=== PATIENT | male | born 1955 | race Caucasian/White ===

== ENCOUNTER 2017-08-10 14:25 | Emergency (ER) | payer OTHER ==
[~2017-08-10] VITALS: Ht 175.3 cm; Wt 110.6 kg
[~2017-08-10 14:25] MED LIST: ACET-24 PO; ASPEC81 PO; CLB200 PO; CYM/30 PO; DULO60CA44 PO; GABA-113 PO; ONDA8TAB6 PO; RXC5 PO; SENN-61 PO
[2017-08-10 14:37] VITALS: TEMP 36.8; Ht 175.3 cm; Wt 110.6 kg
[2017-08-10] MEDS ORDERED: OMEP20CA9 PO (14:59)
--- NOTE | 2017-08-10 15:31 | DIAGNOSTIC IMAGING REPORT ---
R KNEE 1 OR 2 VIEWS ROUTINE CLINICAL HISTORY: rt knee pain after fall, s/p total knee arthroplasty 07/31/17 trauma. Pain. COMPARISON: 07/31/2017 DISCUSSION: Anatomic alignment posttotal right knee arthroplasty. Prepatellar soft tissue edema. No acute post traumatic abnormality. IMPRESSION: 1. Prepatellar soft tissue edema. 2. Total right knee replacement in good position. 3. No acute bony abnormality. The above report was generated using voice recognition software. It may contain grammatical, syntax or spelling errors. Electronically signed by: Zaire Neumann M.D. 08/10/2017 3:30 PM Dictated Date/Time: 08/10/2017 3:29 PM
[2017-08-10 16:24] VITALS: BP 156/89; PULSE 87; O2SAT 94
--- NOTE | 2017-08-10 16:35 | EMERGENCY ROOM VISIT NOTE ---
History Report prepared by Nancy: Khai Biggs Under the Supervision of: Dr. Ej Lopez D.O. First contact with patient: 14:50 Chief Complaint: FALL Stated Complaint: fall History of Present Illness The patient is a 61 year old male who presents to the Emergency Room with complaints of a sudden mechanical fall that occurred earlier this afternoon. He states that he had a total right knee replacement over a week ago. Per the patient's , the patient was using his walker, but had one hand on the walker and had the other hand trying to move something on the floor, and then the patient lost his balance and fell. The patient says that he has had persistent right knee pain ever since the fall, but he did not hear a pop. He notes that the swelling has not worsened. He says that he did not hit his head on the fall. The patient did take 2 Oxycodone around 2 hours ago. Source of History: patient, spouse/significant other Onset: Earlier this afternoon Position: other (global) Symptom Intensity: hurt left knee that he had total knee replacement on last week Quality: other (mechanical fall) Timing: other (sudden) Note: Associated symptoms: Left knee pain. Notes no worsened swelling to knee. Did not hit head. Review of Systems See HPI for pertinent positives & negatives. A total of 10 systems reviewed and were otherwise negative. Past Medical & Surgical Surgical Problems: (1) S/P TKR (total knee replacement) Family History No pertinent family history Social History Smoking Status: Never Smoker Smokeless Tobacco Use: No Alcohol Use: none Marital Status: Housing Status: lives with family Occupation Status: retired Current/Historical Medications Scheduled Acetaminophen (Sb Non-Aspirin Extra Stre), 1,000 MG PO Q8H Aspirin (Aspirin EC Low Dose), 81 MG PO BID Celecoxib (Celebrex), 200 MG PO BID Duloxetine Hcl (Cymbalta), 60 MG PO HS Gabapentin (Neurontin), 600 MG PO TID Omeprazole (Prilosec), 40 MG PO QAM Senna (Senokot), 17.2 MG PO HS Scheduled PRN Ondansetron Hcl (Zofran), 8 MG PO Q8 PRN for Nausea Oxycodone HCl (Oxycodone HCl), 5-10 MG PO Q4H PRN for Pain Allergies Coded Allergies: No Known Allergies (Unverified , 07/06/17) Physical Exam Vital Signs Date Time Temp Pulse Resp B/P (MAP) Pulse Ox O2 Delivery O2 Flow Rate FiO2 08/10/17 16:24 87 19 156/89 94 Room Air 08/10/17 14:37 36.8 85 22 139/77 97 Room Air Physical Exam CONSTITUTIONAL/VITAL SIGNS: Reviewed / noted above. GENERAL: Non-toxic in appearance. INTEGUMENTARY: Warm, dry, and [place]. HEAD: Normocephalic. EYES: without scleral icterus or trauma. ENT/OROPHARYNX: clear and moist. LYMPHADENOPATHY/NECK: Is supple without lymphadenopathy or meningismus. RESPIRATORY: Lungs clear and equal. CARDIOVASCULAR: Regular rate and rhythm. GI/ABDOMEN: Soft and nontender. No organomegaly or pulsatile mass. No rebound or guarding. Normal bowel sounds. EXTREMITIES: Right knee is swollen, hyperemic and warm with a post-surgical wound anteriorly without obvious infection or discharge. Limited range of motion due to discomfort. BACK: No CVA tenderness. NEUROLOGICAL: Intact without focal deficits. PSYCHIATRIC: normal affect. MUSCULOSKELETAL: Normally developed with good muscle tone. Medical Decision & Procedures ER Provider Diagnostic Interpretation: X ray results and stated below per my interpretation and radiology interpretation. R KNEE 1 OR 2 VIEWS ROUTINE CLINICAL HISTORY: rt knee pain after fall, s/p total knee arthroplasty 07/31/17 trauma. Pain. COMPARISON: 07/31/2017 DISCUSSION: Anatomic alignment posttotal right knee arthroplasty. Prepatellar soft tissue edema. No acute post traumatic abnormality. IMPRESSION: 1. Prepatellar soft tissue edema. 2. Total right knee replacement in good position. 3. No acute bony abnormality. The above report was generated using voice recognition software. It may contain grammatical, syntax or spelling errors. Electronically signed by: Zaire Neumann M.D. 08/10/2017 3:30 PM Dictated Date/Time: 08/10/2017 3:29 PM Medications Administered Medications (Trade) Dose Ordered Sig/Marlena Route Start Time Stop Time Status Last Admin Dose Admin Oxycodone/ Acetaminophen (Percocet 5-325mg Tab) 2 tab NOW ONCE PO 08/10/17 16:45 08/10/17 16:46 DC 08/10/17 16:45 2 TAB ED Course 1453: Previous medical records were reviewed. The patient was evaluated in room A10. A complete history and physical examination was performed. 1641: On reevaluation, the patient is resting. I discussed the results and findings with the patient. He verbalized agreement of the treatment plan. He was discharged home. 1644: Ordered Percocet 5-325mg Tab 2 tab PO. Medical Decision Differentials include: Close head injury, intracranial bleed, facial trauma, cervical spine trauma, chest and thoracic trauma, abdominal and intra-abdominal trauma, spine neurologic trauma, and extremity trauma. This is a 61-year-old male who presents to the ED with a chief complaint of a fall. The patient was walking with a walker today and bent over to get something and fell over. The patient had his total right knee arthroplasty done about 9 days ago. The patient has no other complaints. Did not strike his head or lose consciousness. He came in complaining of right knee pain. The patient's exam reveals post operative changes. There is some swelling to the right knee which the reports is about what it has been. There is some increased warmth and hyperemia to the area but no obvious infection. There was no obvious injuries noted other than his postsurgical process. He denies striking his right knee. He just complains of pain in that area. His exam is otherwise unremarkable. X-ray reveals post operative changes and some soft tissue swelling. He was given 2 Percocet here for pain. He was felt to be stable for discharge. Medication Reconcilliation Current Medication List: was personally reviewed by me Blood Pressure Screening Patient's blood pressure: Elevated blood pressure Blood pressure disposition: Elevated BP felt to be situational Impression Primary Impression: S/P TKR (total knee replacement) Additional Impressions: Fall Knee pain Scribe Attestation The scribe's documentation has been prepared under my direction and personally reviewed by me in its entirety. I confirm that the note above accurately reflects all work, treatment, procedures, and medical decision making performed by me. Departure Information Dispostion Home / Self-Care Referrals No Doctor, Assigned (PCP) Patient Instructions My [facility] Additional Instructions Continue your current medications. Follow-up with your doctor for further care and evaluation in 1-2 days. Return to the emergency department for worsening or new symptoms or any concerns. You have been examined and treated today on an emergency basis only. This is not a substitute for, or an effort to provide, complete comprehensive medical care. It is impossible to recognize and treat all injuries or illnesses in a single emergency department visit. It is therefore important that you follow up closely with your doctor. Call as soon as possible for an appointment. Problem Qualifiers
[2017-08-10] MEDS ORDERED: OXYCODONE/ACETAMINOPHEN 5-325 TAB PO ONE (16:45)
== END 2017-08-10 16:51 | disposition home or self-care (01) ==
LOC: EDBD 14:25 → C.EDA 14:27
DX: M25.561 Pain in right knee (principal); Z96.651 Presence of right artificial knee joint; Z79.82 Long term (current) use of aspirin; Z79.899 Other long term (current) drug therapy; W19.XXXA Unspecified fall, initial encounter

== ENCOUNTER → 2017-12-07 | Outpatient (CLI) | payer OTHER ==
[~2017-12-07] MED LIST changes: -ASPEC81 PO; +ASPI-320 PO; +ASPI-461 PO; +CEFT1INJ57 IV; +CLB/200 PO; +CYAN10005 PO; +DAPT500I IV; +NRN600 PO; +OMEP20CA9 PO; +ONDA-170 PO; -ONDA8TAB6 PO; +OXYSR10 PO; +TRAZ1TAB96 PO; +bactrim PO; +ferrous PO
[2017-12-07 15:55] LABS: HEMATOCRIT 31.6 % (42-52); HEMOGLOBIN 9.6 g/dL (14.0-18.0); MEAN CELL VOLUME 72.6 fL (80-100); MEAN CORPUSCULAR HEMOGLOBIN 22.1 pg (25-34); MEAN CORPUSCULAR HGB CONC 30.4 g/dl (32-36); MEAN PLATELET VOLUME 7.8 fL (7.4-10.4); PLATELET COUNT 510 K/uL (130-400); RED CELL DISTRIBUTION WIDTH SD 45.7 fL (36.4-46.3); WHITE BLOOD COUNT 11.01 K/uL (4.8-10.8)
[2017-12-07 16:06] LABS: ALBUMIN 2.8 gm/dl (3.4-5.0); BLOOD UREA NITROGEN 17 mg/dl (7-18); CALCIUM 8.7 mg/dl (8.5-10.1); CARBON DIOXIDE 28 mmol/L (21-32); CREATININE 0.85 mg/dl (0.60-1.40); GLUCOSE 107 mg/dl (70-99); POTASSIUM 3.8 mmol/L (3.5-5.1); SODIUM 137 mmol/L (136-145)
[2017-12-07 16:08] LABS: PTT PATIENT 30.8 SECONDS (21.0-31.0)
[2017-12-07 16:10] LABS: BASO % 0.4 %; BASO ABS # 0.04 K/uL (0-0.2); EOS ABS # 0.22 K/uL (0-0.5); IG# 0.04 K/uL (0.00-0.02); LYMPH % 11.7 %; LYMPH ABS # 1.29 K/uL (1.2-3.4); MONO % 8.1 %; MONO ABS # 0.89 K/uL (0.11-0.59); NEUT % 77.4 %; NEUT ABS # 8.53 K/uL (1.4-6.5)
[2017-12-08 07:18] LABS: HEMOGLOBIN A1C 6.2 % (4.5-5.6)
--- NOTE | 2017-12-14 14:05 | EDITING REQUIRED CODING QUERY ---
CQSUPPORTING DIAGNOSIS NEEDED A supporting diagnosis is required for the test/procedure performed on this patient in order for us to be reimbursed by the patient's insurance. Please provide a supporting diagnosis for the following test/procedure listed below next to the test name along with your signature. *If there is no additional diagnosis for this patient that would support the following test/procedure please document that below next to the test/procedure. Test(s)/Procedure(s) that require a supporting diagnosis: DOS 12/07/17 CBC TEST URINE CULTURE TEST HEMOGLOBIN TEST Provider Signature: Date: Thank you Claudia Almanza Health Information Management Once completed, please kindly fax back to [phone] For questions please call [phone]
--- NOTE | 2017-12-21 06:46 | CODING QUERY MEDICAL NECESSITY ---
CQTREATMENT RENDERED WITHOUT A DIAGNOSIS To promote full compliance with coding requirements relating to patient care, physician participation is requested in all cases of construction superintendent uncertainty. Please assist us with providing a diagnosis/symptom for the test(s) below: A diagnosis/symptom was not documented on your Order. A valid diagnosis/symptom is required to bill all insurances. Please remember that we are unable to code a diagnosis of rule out, probable, possible, questionable, or suspected. Tests that require a diagnosis: DOS 12/07/17 CBC TEST URINE CULTURE TEST HEMOGLOBIN TEST Provider Signature: Date: Thank you Claudia Almanza Health Information Management Once completed, please kindly fax back to [phone] For questions please call [phone]
== END | disposition home or self-care (01) ==
LOC: C.LAB 14:20
PROVIDERS: ATTEND Orthopaedic Surgery
DX: Z01.812 Encounter for preprocedural laboratory examination (principal)

== ENCOUNTER → 2017-12-24 | Outpatient (CLI) | payer OTHER ==
[2017-12-24 13:42] LABS: HEMATOCRIT 28.8 % (42-52); HEMOGLOBIN 8.6 g/dL (14.0-18.0); MEAN CELL VOLUME 76.2 fL (80-100); MEAN CORPUSCULAR HEMOGLOBIN 22.8 pg (25-34); MEAN CORPUSCULAR HGB CONC 29.9 g/dl (32-36); MEAN PLATELET VOLUME 8.1 fL (7.4-10.4); PLATELET COUNT 545 K/uL (130-400); RED CELL DISTRIBUTION WIDTH CV 19.1 % (11.5-14.5); RED CELL DISTRIBUTION WIDTH SD 53.4 fL (36.4-46.3); WHITE BLOOD COUNT 11.05 K/uL (4.8-10.8)
[2017-12-24 14:19] LABS: ALBUMIN 2.7 gm/dl (3.4-5.0); ALKALINE PHOSPHATASE 120 U/L (45-117); ALT/SGPT 30 U/L (12-78); AST/SGOT 35 U/L (15-37); BLOOD UREA NITROGEN 14 mg/dl (7-18); CALCIUM 8.8 mg/dl (8.5-10.1); CARBON DIOXIDE 28 mmol/L (21-32); CREATININE 0.89 mg/dl (0.60-1.40); GLUCOSE 87 mg/dl (70-99); POTASSIUM 3.9 mmol/L (3.5-5.1); SODIUM 141 mmol/L (136-145); TOTAL PROTEIN 7.4 gm/dl (6.4-8.2)
== END | disposition home or self-care (01) ==
LOC: C.LABSPEC 10:36
PROVIDERS: ATTEND Orthopaedic Surgery
DX: Z96.651 Presence of right artificial knee joint (principal)

== ENCOUNTER → 2017-12-26 | Outpatient (CLI) | payer OTHER ==
[~2017-12-26] MED LIST changes: -ASPI-320 PO; -CLB200 PO; -DAPT500I IV; -GABA-113 PO; -ONDA-170 PO; -OXYSR10 PO
== END | disposition home or self-care (01) ==
LOC: C.LABSPEC 09:37
PROVIDERS: ATTEND Internal Medicine Infectious Disease
DX: B99.8 Other infectious disease (principal); Z96.651 Presence of right artificial knee joint

== ENCOUNTER → 2017-12-31 | Outpatient (CLI) | payer OTHER ==
[2017-12-31 10:58] LABS: HEMATOCRIT 30.6 % (42-52); HEMOGLOBIN 8.9 g/dL (14.0-18.0); MEAN CELL VOLUME 77.3 fL (80-100); MEAN CORPUSCULAR HEMOGLOBIN 22.5 pg (25-34); MEAN CORPUSCULAR HGB CONC 29.1 g/dl (32-36); MEAN PLATELET VOLUME 8.4 fL (7.4-10.4); PLATELET COUNT 487 K/uL (130-400); RED CELL DISTRIBUTION WIDTH CV 19.6 % (11.5-14.5); RED CELL DISTRIBUTION WIDTH SD 55.1 fL (36.4-46.3); WHITE BLOOD COUNT 9.63 K/uL (4.8-10.8)
[2017-12-31 11:24] LABS: ALBUMIN 2.7 gm/dl (3.4-5.0); ALKALINE PHOSPHATASE 103 U/L (45-117); ALT/SGPT 20 U/L (12-78); AST/SGOT 25 U/L (15-37); BLOOD UREA NITROGEN 17 mg/dl (7-18); CALCIUM 8.9 mg/dl (8.5-10.1); CARBON DIOXIDE 26 mmol/L (21-32); GLUCOSE 90 mg/dl (70-99); POTASSIUM 3.9 mmol/L (3.5-5.1); SODIUM 143 mmol/L (136-145); TOTAL PROTEIN 7.2 gm/dl (6.4-8.2)
[2017-12-31 11:59] LABS: EOS % 6.1 %; EOS ABS # 0.59 K/uL (0-0.5); IG# 0.03 K/uL (0.00-0.02); LYMPH ABS # 1.54 K/uL (1.2-3.4); MONO % 8.8 %; MONO ABS # 0.85 K/uL (0.11-0.59); NEUT % 67.8 %; NEUT ABS # 6.52 K/uL (1.4-6.5)
== END | disposition home or self-care (01) ==
LOC: C.LABSPEC 10:31
PROVIDERS: ATTEND Internal Medicine Infectious Disease
DX: L03.90 Cellulitis, unspecified (principal)

== ENCOUNTER → 2018-01-14 | Outpatient (CLI) | payer OTHER ==
[2018-01-14 11:51] LABS: HEMATOCRIT 29.3 % (42-52); HEMOGLOBIN 8.6 g/dL (14.0-18.0); MEAN CELL VOLUME 78.8 fL (80-100); MEAN CORPUSCULAR HEMOGLOBIN 23.1 pg (25-34); MEAN CORPUSCULAR HGB CONC 29.4 g/dl (32-36); MEAN PLATELET VOLUME 8.9 fL (7.4-10.4); PLATELET COUNT 326 K/uL (130-400); RED CELL DISTRIBUTION WIDTH CV 20.6 % (11.5-14.5); RED CELL DISTRIBUTION WIDTH SD 59.8 fL (36.4-46.3); WHITE BLOOD COUNT 4.84 K/uL (4.8-10.8)
[2018-01-14 12:00] LABS: ALBUMIN 2.7 gm/dl (3.4-5.0); ALKALINE PHOSPHATASE 105 U/L (45-117); ALT/SGPT 23 U/L (12-78); AST/SGOT 23 U/L (15-37); BLOOD UREA NITROGEN 21 mg/dl (7-18); CALCIUM 8.5 mg/dl (8.5-10.1); CARBON DIOXIDE 26 mmol/L (21-32); CREATININE 1.54 mg/dl (0.60-1.40); GLUCOSE 111 mg/dl (70-99); POTASSIUM 3.9 mmol/L (3.5-5.1); SODIUM 141 mmol/L (136-145); TOTAL PROTEIN 6.8 gm/dl (6.4-8.2)
[2018-01-14 12:14] LABS: BASO % 1.9 %; BASO ABS # 0.09 K/uL (0-0.2); EOS % 4.1 %; IG# 0.01 K/uL (0.00-0.02); LYMPH ABS # 0.87 K/uL (1.2-3.4); MONO % 22.7 %; NEUT % 53.1 %; NEUT ABS # 2.57 K/uL (1.4-6.5)
== END | disposition home or self-care (01) ==
LOC: C.LABSPEC 10:41
PROVIDERS: ATTEND Internal Medicine Infectious Disease
DX: M00.9 Pyogenic arthritis, unspecified (principal)

== ENCOUNTER → 2018-01-21 | Outpatient (CLI) | payer OTHER ==
[2018-01-21 14:05] LABS: HEMATOCRIT 29.3 % (42-52); HEMOGLOBIN 8.5 g/dL (14.0-18.0); MEAN CELL VOLUME 80.5 fL (80-100); MEAN CORPUSCULAR HEMOGLOBIN 23.4 pg (25-34); MEAN PLATELET VOLUME 8.5 fL (7.4-10.4); PLATELET COUNT 362 K/uL (130-400); RED CELL DISTRIBUTION WIDTH CV 19.8 % (11.5-14.5); RED CELL DISTRIBUTION WIDTH SD 58.4 fL (36.4-46.3); WHITE BLOOD COUNT 7.17 K/uL (4.8-10.8)
[2018-01-21 14:15] LABS: BLOOD UREA NITROGEN 29 mg/dl (7-18); CREATININE 2.38 mg/dl (0.60-1.40); GLUCOSE 94 mg/dl (70-99)
[2018-01-21 14:16] LABS: ALBUMIN 2.5 gm/dl (3.4-5.0); ALKALINE PHOSPHATASE 109 U/L (45-117); ALT/SGPT 22 U/L (12-78); AST/SGOT 15 U/L (15-37); CALCIUM 8.3 mg/dl (8.5-10.1); CARBON DIOXIDE 25 mmol/L (21-32); POTASSIUM 3.4 mmol/L (3.5-5.1); SODIUM 141 mmol/L (136-145); TOTAL PROTEIN 6.8 gm/dl (6.4-8.2)
[2018-01-21 14:32] LABS: BASO % 0.6 %; BASO ABS # 0.04 K/uL (0-0.2); EOS % 3.9 %; EOS ABS # 0.28 K/uL (0-0.5); IG# 0.01 K/uL (0.00-0.02); LYMPH % 16.2 %; LYMPH ABS # 1.16 K/uL (1.2-3.4); MONO % 11.6 %; MONO ABS # 0.83 K/uL (0.11-0.59); NEUT % 67.6 %; NEUT ABS # 4.85 K/uL (1.4-6.5)
== END | disposition home or self-care (01) ==
LOC: C.LABSPEC 07:40
PROVIDERS: ATTEND Internal Medicine Infectious Disease
DX: L03.90 Cellulitis, unspecified (principal)

== ENCOUNTER 2025-04-24 23:53 | Inpatient (IN) ==
[2025-04-25] MEDS ORDERED: VANCOMYCIN CONSULT ACTIVE PRN (00:32)
--- NOTE | 2025-04-25 00:32 | Emergency Department Note ---
History of Present Illness General Chief complaint: Foot Injury/Pain Stated complaint: LT FOOT INFECTION? Time Seen by Provider: 04/25/25 00:08 History of Present Illness Maximum Pain Intensity: 8 This 69-year-old male presents to the ER complaining of left foot infection. He had surgery a few years ago. Patient states the past few days has become more red swollen and painful. It started draining today. His was concerned and sent him in. Tetanus is reported as current. He denies diabetes. Patient denies chest pain, dyspnea, fevers, calf pain. Home Medications Medication Instructions Recorded Confirmed Type cyanocobalamin (vitamin B-12) 1,000 mcg PO QAM 02/04/21 04/25/25 History 1,000 mcg tablet (Vitamin B-12) sertraline 50 mg tablet 50 mg PO DAILY #90 tabs 06/24/24 04/25/25 Rx aspirin 81 mg chewable tablet 81 mg PO DAILY 12/23/24 04/25/25 History esomeprazole magnesium 40 mg 40 mg PO QAM #90 caps 12/23/24 04/25/25 Rx capsule,delayed release (Nexium) famotidine 20 mg tablet (Pepcid) 20 mg PO HS #90 tabs 01/07/25 04/25/25 Rx trazodone 50 mg tablet 50 mg PO HS #90 tabs 01/07/25 04/25/25 Rx celecoxib 200 mg capsule 200 mg PO BID #60 caps 03/05/25 04/25/25 Rx gabapentin 300 mg capsule 300 mg PO TID #90 caps 04/22/25 04/25/25 Rx losartan 50 mg tablet 50 mg PO DAILY #30 tabs 04/22/25 04/25/25 Rx albuterol sulfate 90 mcg/actuation 1 - 2 puff inhalation .EVERY 4-6HR 04/25/25 04/25/25 History aerosol inhaler PRN cough/sob potassium chloride 20 mEq 20 meq PO DAILY 04/25/25 04/25/25 History tablet,extended release Allergies Allergy/AdvReac Type Severity Reaction Status Date / Time ceftriaxone [From Rocephin] Allergy Rash Verified 01/29/25 12:55 Past Med/Surg History Problem List Acute kidney injury (Acute) Cellulitis of foot, left (Acute) Rheumatoid arthritis Positive colorectal cancer screening using Cologuard test Balance disorder MAXIMO (obstructive sleep apnea) Essential hypertension (Chronic) Anemia (Acute) History of revision of total knee arthroplasty Encounter for pre-operative examination Not cleared at this time due to elevated BUN/Cr and decreased GFR. Spoke with Zaire Neil PA-C from [facility] [place] and they feel that the abnormal labs were secondary to the antibiotics that he was on at that time. He is to come into the hospital this evening and have repeat labs drawn. Will evaluate patient in the morning and review the labs and decide if patient is clear at that time from an anesthesia perspective. S/P TKR (total knee replacement) (Chronic) Medical History (Updated 04/25/25 @ 04:05 by Padmini Layton PA-C) Obesity (BMI 30.0-34.9) Depression Anxiety Anemia Hyperlipidemia Acid reflux Osteoarthritis Sleep apnea NO LONGER USES CPAP, HAS HAD NO ISSUES. Surgical History S/P foot surgery, left History of tonsillectomy and adenoidectomy Amputation of finger of right hand History of colonoscopy History of total knee replacement Fusion of spine Family History Other Heart disease Denies family history of Cancer Social History Smoking Status: Never smoker Second Hand Exposure: No; Do You Dip or Chew Tobacco: No; Hx Alcohol Use: No Hx Substance Use: No Preferred Language: Citizen Of [place] Communication Ability: Effective Visual Impairment: No Limitations Agility Instructor Required: No Beliefs That Will Affect Care: None Current Living Situation: Spouse Current Living Situation Comment: lives at home with Feels Safe at Home: Yes Seatbelt Use: always Assistive Devices: Cane and CPAP Review of Systems A total of 10 systems reviewed and were otherwise negative Physical Exam Vital Signs Vital Signs - 24 hr 04/25/25 00:01 04/25/25 00:34 04/25/25 00:37 Temperature 36.6 C Temperature Source Temporal Artery Scan Pulse Rate 101 H 100 H Pulse Rate [Right Finger] 103 H Pulse Rhythm Regular Pulse Rhythm [Right Finger] Regular Respiratory Rate 20 18 18 Respiratory Effort / Characteristics Non-Labored Respiratory Depth Normal Blood Pressure 143/67 H Blood Pressure [Right Arm] 135/80 Blood Pressure Mean 92 Blood Pressure Mean [Right Arm] 98 Blood Pressure Position Sitting Pulse Oximetry 92 95 95 Oxygen Delivery Method Room Air Room Air Room Air Sepsis Recent Fever Within 48 Hours No Sepsis New/Unexplained Change in Mental Status N/A Sepsis Action Taken by Nursing No Action Required 04/25/25 00:37 04/25/25 00:59 04/25/25 01:16 Temperature Temperature Source Pulse Rate Pulse Rate [Right Finger] 100 H 96 H 96 H Pulse Rhythm Pulse Rhythm [Right Finger] Regular Regular Regular Respiratory Rate 18 18 16 Respiratory Effort / Characteristics Non-Labored Non-Labored Non-Labored Respiratory Depth Normal Normal Normal Blood Pressure Blood Pressure [Right Arm] 135/80 129/75 140/80 Blood Pressure Mean Blood Pressure Mean [Right Arm] 98 93 100 Blood Pressure Position Pulse Oximetry 95 92 93 Oxygen Delivery Method Room Air Room Air Room Air Sepsis Recent Fever Within 48 Hours Sepsis New/Unexplained Change in Mental Status Sepsis Action Taken by Nursing 04/25/25 02:10 04/25/25 02:15 Temperature Temperature Source Pulse Rate Pulse Rate [Right Finger] 100 H 96 H Pulse Rhythm Pulse Rhythm [Right Finger] Regular Regular Respiratory Rate 18 18 Respiratory Effort / Characteristics Non-Labored Respiratory Depth Normal Normal Blood Pressure Blood Pressure [Right Arm] 106/60 157/81 H Blood Pressure Mean Blood Pressure Mean [Right Arm] 75 106 Blood Pressure Position Pulse Oximetry 94 94 Oxygen Delivery Method Room Air Room Air Sepsis Recent Fever Within 48 Hours Sepsis New/Unexplained Change in Mental Status Sepsis Action Taken by Nursing VITALS: Vitals are noted on the nurse's note and reviewed by myself. Vital signs stable. GENERAL: White male with family present, in no acute distress, nondiaphoretic, well-developed well-nourished. SKIN: Capillary reflex less than 2 seconds. HEENT: Normocephalic. PERRLA. EOMI. Nares patent. Mucous membranes moist. Neck is supple without nuchal rigidity. HEART: Regular rate and rhythm LUNGS: Clear to auscultation bilaterally without wheezes, rales or rhonchi. No retractions or accessory muscle use. ABDOMEN: Positive bowel sounds x 4. Normal tympanic percussion. Soft, nontender, without masses or organomegaly. Wyatt sign negative. No guarding or rebound tenderness. no CVA tenderness MUSCULOSKELETAL: No gross musculoskeletal defects. Left foot erythematous and edematous with open wound actively draining purulent material, culture taken and sent. Pedal pulses +2 equal and present bilaterally. No calf tenderness bilaterally. NEURO: Patient was alert and oriented to person place and time. No focal neurological deficits. Course Administered Medications Hydromorphone HCl (Hydromorphone Inj 0.5 Mg/0.5 Ml Syr) 0.25 mg IV Q3H PRN PRN Reason: Mod-Sev Pain (Scale 4-10) Stop: 05/09/25 02:37 Last Admin: 04/25/25 03:25 Dose: 0.25 mg Documented By: BEATRIZ Sodium Chloride (Nss) 1,000 mls @ 80 mls/hr IV .[id number] STA Stop: 04/25/25 14:48 Last Admin: 04/25/25 02:24 Dose: 80 mls/hr Documented By: MIGUEL Discontinued Medications Piperacillin Sod/Tazobactam Sod (Zosyn) 4.5 gm in 100 mls @ 200 mls/hr IV NOW ONE; Protocol Stop: 04/25/25 00:43 Last Infusion: 04/25/25 01:18 Dose: Infused Documented By: Admin: 04/25/25 00:48 Dose: 200 mls/hr Documented By: MIGUEL Vancomycin HCl 2,250 mg/ (Sodium Chloride) 545 mls @ 200 mls/hr IV NOW ONE Stop: 04/25/25 03:15 Last Infusion: 04/25/25 02:36 Dose: Infused Documented By: Infusion: 04/25/25 02:12 Dose: 0 mls/hr Documented By: Admin: 04/25/25 01:08 Dose: 200 mls/hr Documented By: MIGUEL Acetaminophen (Ofirmev) 1,000 mg in 100 mls @ 400 mls/hr IV NOW STA Stop: 04/25/25 01:35 Last Infusion: 04/25/25 02:11 Dose: Infused Documented By: Admin: 04/25/25 01:25 Dose: 400 mls/hr Documented By: MIGUEL Medical Decision Making Medical Records Attestation: I reviewed the patient's medical records. Home Medications Current Medication List: was personally reviewed by me Laboratory Data Attestation: I reviewed the patient's lab results. 04/25/25 00:27 04/25/25 00:27 Lab Results 04/25/25 04/25/25 04/25/25 Range/Units 00:27 01:37 02:09 WBC 18.20 H (4.8-10.8) K/ul RBC 4.37 L (4.70-6.10) M/uL Hgb 10.5 L (14.0-18.0) g/dL Hct 34.3 L (42.0-52.0) % MCV 78.5 L (80.0-100.0) fL MCH 24.0 L (25.0-34.0) pg MCHC 30.6 L (32.0-36.0) g/dL RDW Std Deviation 43.8 (36.4-46.3) fL RDW Coeff of Veronica 15.4 H (11.5-14.5) % Plt Count 278 (130-400) K/uL MPV 9.1 L (9.4-12.4) fL Immature Gran % (Auto) 0.5 % Neut % (Auto) 85.3 % Lymph % (Auto) 2.7 % [place] % (Auto) 10.9 % Eos % (Auto) 0.3 % Baso % (Auto) 0.3 % Neut # (Auto) 15.53 H (1.40-6.50) K/uL Lymph # (Auto) 0.49 L (1.20-3.40) K/uL [place] # (Auto) 1.98 H (0.11-0.59) K/uL Eos # (Auto) 0.05 (0.00-0.50) K/uL Baso # (Auto) 0.05 (0.00-0.20) K/uL Immature Gran # (Auto) 0.10 (0.01-0.20) K/uL ESR 73 H (0-20) mm/hr Sodium 140 (136-145) mmol/L Potassium 3.9 (3.5-5.1) mmol/L Chloride 108 H (98-107) mmol/L Carbon Dioxide 23 (21-32) mmol/L Anion Gap 9 (3-11) BUN 34 H (6-23) mg/dl Creatinine 1.43 H (0.6-1.4) mg/dl Est Cr Clr Drug Dosing 58.2 ml/min eGFR 52.38 BUN/Creatinine Ratio 23.8 H (10-20) Glucose 168 H (70-99(Fasting)) mg/dl Lactate 1.7 (0.4-2.0) mmol/L Calcium 8.9 (8.6-10.3) mg/dl Magnesium 1.9 (1.7-2.4) mg/dl Total Bilirubin 0.7 (0.2-1.0) mg/dl Direct Bilirubin TNP 0.3 H AST 46 H (13-39) U/L ALT 41 (7-52) U/L Alkaline Phosphatase 95 (34-104) U/L Troponin I High Sens 7.0 (0-20) pg/ml C-Reactive Protein 28.28 H (0-0.5) mg/dl Total Protein 7.1 (6.0-8.3) gm/dl Albumin 3.7 (3.4-5.0) gm/dl Procalcitonin 0.39 (0-0.5) ng/ml Urine Color Yellow Urine Appearance Clear (Clear) Urine pH 5.5 (4.5-7.5) Ur Specific [place] 1.028 (1.000-1.030) Urine Protein 1+ H (Negative) Urine Glucose (UA) Negative (Negative) Urine Ketones Trace H (Negative) Urine Blood Negative (Negative) Urine Nitrite Negative (Negative) Urine Bilirubin Negative (Negative) Urine Urobilinogen Negative (Negative) Ur Leukocyte Esterase Negative (Negative) Urine WBC (Auto) 0-5 (0-5) /hpf Urine RBC (Auto) 0-2 (0-2) /hpf U Hyaline Cast (Auto) 0-2 (0-2) /lpf U Epithel Cells (Auto) 0-2 (0-2) /hpf Urine Bacteria (Auto) None Seen (None Seen) Urine Comment Imaging Data Attestation: I personally reviewed and interpreted this imaging study as follows: Radiologist's Impression: Foot X-Ray 04/25/25 00:14 EXAM: XR foot LT min 3V routine CLINICAL HISTORY: infx, ? OM TECHNIQUE: Radiograph of left foot was acquired. COMPARISON: CR, 11/22/2021 12:56:27 [employer] CONSULTANT FINDINGS: Interval placement of surgical plates/screws with arthrodesis of 1st,2nd and 3rd tarso-metatarsal joints. Reduced intertarsal joint spaces with multiple areas of subchondral erosions/sclerosis. There is no evidence of acute fracture, dislocation or osseous lesion. The sesamoid complex is well approximated. Tarsal bones are well aligned. The soft tissues are unremarkable. IMPRESSION: 1. Interval placement of surgical plates/screws with arthrodesis of 1st,2nd and 3rd tarso-metatarsal joints. 2. Reduced intertarsal joint spaces with multiple areas of subchondral erosions/sclerosis- Degenerative vs inflammatory arthritis- Stable. 3. Interval increase in adjacent soft tissue thickening at the level of 1st to 3rd tarso-metatarsal joints. Electronically signed by Gerson Lee 04-25-2025 02:00 AM Venous Doppler Study 04/25/25 00:14 EXAM: US venous doppler LE LT CLINICAL HISTORY: ? DVT TECHNIQUE: Ultrasound examination of left lower extremity veins was performed in real time and duplex. One or more of the following were performed- spectral analysis, resistive index, waveform analysis, and pulsed Doppler. COMPARISON: None. FINDINGS: Normal phasic, non-pulsatile and spontaneous flow is noted in visualized left greater saphenous, left common femoral, superficial femoral , profunda femoris, popliteal, anterior tibial, posterior tibial and peroneal veins. Visualized veins of left lower extremity demonstrate normal compressibility. No sonographic evidence of acute deep vein thrombosis (DVT) is detected in the visualized veins of lower extremity. Compression and Augmentation: All evaluated veins compress fully with applied transducer pressure. Augmentation of venous flow is noted with distal compression. Additional Findings: No evidence of intraluminal thrombus. Multiple lymph nodes are identified in the left inguinal region, one of them measures 0.97 cm Mild soft tissue edema seen in left lower extremity IMPRESSION: 1. No sonographic evidence of acute DVT detected at the time of examination. 2. Multiple left inguinal lymph nodes 3. Mild soft tissue edema and left lower extremity Disclaimer: DVT could be missed early in the disease when clot burden is minimal. For patients with moderate and high pretest probability of DVT and negative ultrasound, the [place] [employer] clinical guidelines recommend testing with a D-dimer assay or repeat ultrasound in 5-7 days. If symptoms worsen, the Society of radiologists in ultrasound recommends repeating ultrasound even earlier. Electronically signed by Braulio Phipps 04-25-2025 03:22 AM MDM Narrative Prior records reviewed and summarized as above. Triage Nursing notes reviewed. Additional history obtained from family. The patient's history was concerning for swelling and redness of the skin. Differential diagnosis: Etiologies such as cellulitis, abscess, MRSA infection, DVT, necrotizing fasciitis, dermatitis, drug eruption, as well as others were entertained.. Physical examination: As above ER treatment provided: Vancomycin, Zosyn Wound culture taken and sent On reassessment the patient felt better. Diagnostics interpreted by me: EKG ordered for weakness EKG: Normal sinus, poor baseline, no acute ST-T wave changes, rate 98. Impression normal sinus rhythm poor baseline independently interpreted by myself The labs Independently Interpreted by myself revealed leukocytosis, elevated inflammatory markers Wound culture pending, cultures pending Imaging studies: Imaging was reviewed and read by radiology Consultation: A consultation was placed with the hospitalist. The case was discussed and diagnostics were reviewed. The patient was evaluated in the ER for further treatment. This appears to be extensive left foot infection. Patient was started on broad- spectrum antibiotics. Wound culture was taken and sent. Medicine was consulted case discussed. He will be evaluated for admission. By the evaluation outlined above emergent etiologies such as abscess, necrotizing fasciitis, DVT, as well as others were deemed relatively unlikely. The pt informed about the findings as listed above. All questions were answered and pleased with the treatment. The chart was completed utilizing [employer] Speech voice recognition software. Grammatical errors, random word insertions, pronoun errors, and incomplete sentences are an occassional consequence of this system due to software limitations, ambient noise, and hardware issues. Any formal questions or concerns about the content, text, or information contained within the body of this dictation should be directly addressed to the physician assistant district attorney for clarification. Impression & Plan Cellulitis of foot, left, Acute kidney injury Discharge Plan Visit Data Chief Complaint: Foot Injury/Pain Stated Complaint: LT FOOT INFECTION? ED Provider: Zaire Ventura ED Midlevel Provider: Padmini Layton Discharge Problem: Cellulitis of foot, left, Acute kidney injury Patient Disposition: Admitted As Inpatient Condition: Good Discharge Instructions Interventions: ED Discharge Assessment Last Done: 04/25/25 02:54
[2025-04-25] MEDS: PIPERACILLIN/TAZOBACTAM 4.5 GM/100 ML BAG IV ONE (00:48)
[2025-04-25 00:58] LABS: Hematocrit (blood only) 34.3 % (42.0-52.0); Hemoglobin 10.5 g/dL (14.0-18.0); Immature Granulocytes # (auto) 0.10 K/uL (0.01-0.20); Immature Granulocytes % (auto) 0.5 %; Mean Corpuscular Hemoglobin 24.0 pg (25.0-34.0); Mean Corpuscular Volume 78.5 fL (80.0-100.0); Platelet Count 278 K/uL (130-400); RDW Standard Deviation 43.8 fL (36.4-46.3); Red Blood Count 4.37 M/uL (4.70-6.10); White Blood Count 18.20 K/ul (4.8-10.8)
[2025-04-25] MEDS: VANCOMYCIN HCL 2,250 MG in SODIUM CHLORIDE 0.9% 500 ML IV ONE (01:08)
[2025-04-25] MEDS: ACETAMINOPHEN 1,000 MG/100 ML VIAL IV STA (01:25)
[2025-04-25 01:31] LABS: Alanine Aminotransferase 41 U/L (7-52); Albumin Level 3.7 gm/dl (3.4-5.0); Alkaline Phosphatase 95 U/L (34-104); Anion Gap 9 (3-11); Bilirubin,Total 0.7 mg/dl (0.2-1.0); Blood Urea Nitrogen 34 mg/dl (6-23); Calcium 8.9 mg/dl (8.6-10.3); Carbon Dioxide 23 mmol/L (21-32); Chloride 108 mmol/L (98-107); Creatinine Clr Calc Pharmacy 58.2 ml/min; Glucose 168 mg/dl (70-99(Fasting)); Magnesium 1.9 mg/dl (1.7-2.4); Potassium 3.9 mmol/L (3.5-5.1); Sodium 140 mmol/L (136-145); Total Protein 7.1 gm/dl (6.0-8.3)
[2025-04-25 01:53] LABS: Appearance Urine Clear (Clear); Bacteria Urine Automated None Seen (None Seen); Cast Urine Automated 0-2 /lpf (0-2); Epithelial Cell Urine Auto 0-2 /hpf (0-2); Glucose Urine UA Negative (Negative); RBC Urine Automated 0-2 /hpf (0-2); WBC Urine Automated 0-5 /hpf (0-5)
--- NOTE | 2025-04-25 02:01 | XRay Report ---
EXAM: XR foot LT min 3V routine CLINICAL HISTORY: infx, ? OM TECHNIQUE: Radiograph of left foot was acquired. COMPARISON: DANIEL, 11/22/2021 12:56:27 TRAIN DISPATCHER FINDINGS: Interval placement of surgical plates/screws with arthrodesis of 1st,2nd and 3rd tarso-metatarsal joints. Reduced intertarsal joint spaces with multiple areas of subchondral erosions/sclerosis. There is no evidence of acute fracture, dislocation or osseous lesion. The sesamoid complex is well approximated. Tarsal bones are well aligned. The soft tissues are unremarkable. IMPRESSION: 1. Interval placement of surgical plates/screws with arthrodesis of 1st,2nd and 3rd tarso-metatarsal joints. 2. Reduced intertarsal joint spaces with multiple areas of subchondral erosions/sclerosis- Degenerative vs inflammatory arthritis- Stable. 3. Interval increase in adjacent soft tissue thickening at the level of 1st to 3rd tarso-metatarsal joints. Electronically signed by Gerson Lee 04-25-2025 02:00 AM
[2025-04-25] MEDS: SODIUM CHLORIDE 0.9% 1,000 ML IV STA (02:24)
--- NOTE | 2025-04-25 02:24 | History & Physical Report ---
Date of Service April 25, 2025 Assessment & Plan (1) Cellulitis of foot, left: (2) S/P foot surgery, left: (3) Acute kidney injury: Plan The patient is a 69-year-old male with a past medical history including rheumatoid arthritis, balance disorder, MAXIMO, hypertension, anemia, asthma, B12 deficiency, GERD, hypertension, and anxiety/insomnia. He reports that earlier in the week he started develop some redness, and painful swelling of his left foot, and later on in the week developed an open area that is draining. The pain has been getting progressively worse, and he presents to the ED this evening for assessment. X-ray of left foot does not suggest osteomyelitis, but does show hardware for 2nd and 3rd toes, which he notes surgery performed at [facility] in [place] about 3 years ago. WBC is 18.20, glucose 168, creatinine 1.43, magnesium 1.9, CRP 28.28. Patient was given Zosyn 4.5 g IV and was started on vancomycin IV by the emergency department. Vancomycin was discontinued due to labs showing acute kidney injury. Patient was referred for admission to the [facility]. Venous Dopplers have been ordered and are pending at this time. Cellulitis of left foot with drainage/history of left foot surgery- NPO for possible procedure in a.m. Daptomycin IV Zosyn 4.5 g IV every 8 hours Tylenol 650 mg by mouth every 6 hours as needed for mild pain or fever Dilaudid 0.25 mg IV every 3 hours as needed for moderate to severe pain Follow-up wound culture and sensitivity Follow blood culture and sensitivity Consult podiatry Acute kidney injury- Creatinine 1.43, with base 1.03 The patient did receive a partial dose of vancomycin before it could be discontinued Hold losartan and Celebrex to 200 mg twice daily to 1 mg twice daily Placed on LR at 80 mL/h x 1 L Repeat laboratories in the a.m. Rheumatoid arthritis- On Celebrex 10 mg twice daily in the outpatient setting, which will be held for now due to YISEL Hypertension- Hold losartan due to YISEL GERD- Change omeprazole to pantoprazole, and famotidine Psychiatric- Continue sertraline Hyperglycemia- Glucose 168 on admission No diagnosis of diabetes Check hemoglobin A1c Obstructive sleep apnea- Nasal cannula O2 as needed at bedtime Peripheral neuropathy- Continue gabapentin 300 mg p.o. 3 times daily History of Present Illness Primary Care Provider: Mary Bay MD The patient is a 69-year-old male with a past medical history including rheumatoid arthritis, balance disorder, MAXIMO, hypertension, anemia, asthma, B12 deficiency, GERD, hypertension, and anxiety/insomnia. He reports that earlier in the week he started develop some redness, and painful swelling of his left foot, and later on in the week developed an open area that is draining. The pain has been getting progressively worse, and he presents to the ED this evening for assessment. X-ray of left foot does not suggest osteomyelitis, but does show hardware for 2nd and 3rd toes, which he notes surgery performed at [facility] in [place] about 3 years ago. WBC is 18.20, glucose 168, creatinine 1.43, magnesium 1.9, CRP 28.28. Patient was given Zosyn 4.5 g IV and was started on vancomycin IV by the emergency department. Vancomycin was discontinued due to labs showing acute kidney injury. Patient was referred for admission to the [facility]. Venous Dopplers have been ordered and are pending at this time. Allergies Allergy/AdvReac Type Severity Reaction Status Date / Time ceftriaxone [From Rocephin] Allergy Rash Verified 01/29/25 12:55 Home Medications Medication Instructions Recorded Confirmed Type cyanocobalamin (vitamin B-12) 1,000 mcg PO QAM 02/04/21 04/25/25 History 1,000 mcg tablet (Vitamin B-12) sertraline 50 mg tablet 50 mg PO DAILY #90 tabs 06/24/24 04/25/25 Rx aspirin 81 mg chewable tablet 81 mg PO DAILY 12/23/24 04/25/25 History esomeprazole magnesium 40 mg 40 mg PO QAM #90 caps 12/23/24 04/25/25 Rx capsule,delayed release (Nexium) famotidine 20 mg tablet (Pepcid) 20 mg PO HS #90 tabs 01/07/25 04/25/25 Rx trazodone 50 mg tablet 50 mg PO HS #90 tabs 01/07/25 04/25/25 Rx celecoxib 200 mg capsule 200 mg PO BID #60 caps 03/05/25 04/25/25 Rx gabapentin 300 mg capsule 300 mg PO TID #90 caps 04/22/25 04/25/25 Rx losartan 50 mg tablet 50 mg PO DAILY #30 tabs 04/22/25 04/25/25 Rx albuterol sulfate 90 mcg/actuation 1 - 2 puff inhalation .EVERY 4-6HR 04/25/25 04/25/25 History aerosol inhaler PRN cough/sob potassium chloride 20 mEq 20 meq PO DAILY 04/25/25 04/25/25 History tablet,extended release Past Med/Surg History Problem List Acute kidney injury Cellulitis of foot, left (Acute) Rheumatoid arthritis Positive colorectal cancer screening using Cologuard test Balance disorder MAXIMO (obstructive sleep apnea) Essential hypertension (Chronic) Anemia (Acute) History of revision of total knee arthroplasty Encounter for pre-operative examination Not cleared at this time due to elevated BUN/Cr and decreased GFR. Spoke with Zaire Neil PA-C from [facility] and they feel that the abnormal labs were secondary to the antibiotics that he was on at that time. He is to come into the hospital this evening and have repeat labs drawn. Will evaluate patient in the morning and review the labs and decide if patient is clear at that time from an anesthesia perspective. S/P TKR (total knee replacement) (Chronic) Medical History (Updated 04/25/25 @ 03:15 by Shailesh Dillon MD) Obesity (BMI 30.0-34.9) Depression Anxiety Anemia Hyperlipidemia Acid reflux Osteoarthritis Sleep apnea NO LONGER USES CPAP, HAS HAD NO ISSUES. Surgical History S/P foot surgery, left History of tonsillectomy and adenoidectomy Amputation of finger of right hand History of colonoscopy History of total knee replacement Fusion of spine Family History Other Heart disease Denies family history of Cancer Social History Smoking Status: Never smoker Second Hand Exposure: No; Do You Dip or Chew Tobacco: No; Hx Alcohol Use: No Hx Substance Use: No Preferred Language: Upper Sorbian Communication Ability: Effective Visual Impairment: No Limitations Planning Advisor Required: No Beliefs That Will Affect Care: None Current Living Situation: Spouse Feels Safe at Home: Yes Seatbelt Use: always Assistive Devices: Cane and Walker Review of Systems Review of Systems: The patient denies chest pain, palpitations, shortness of breath, dyspnea on exertion, cough, sore throat, fevers, chills, sweats, weight change, fatigue, nausea, vomiting, diarrhea , constipation, abdominal pain, pelvic pain, blood in urine or stool, dysuria, urinary frequency or urgency, lightheadedness, dizziness, headache, memory loss, loss of consciousness, focal or generalized weakness, numbness or tingling in arms or right leg, generalized arthralgias or myalgias, back or neck pain, or night sweats. The review of systems is otherwise negative other than for that already noted above, and at least 10 systems have been reviewed. Physical Exam Physical Exam: The patient is awake, alert and oriented 3, well developed and well nourished, normocephalic and atraumatic, lying in bed and in no acute distress. HEENT--PERRL, EOMI, mucous membranes and oropharynx dry. Neck--supple. No JVD. No bruits. Thyroid normal, trachea midline, no adenopathy. Heart--normal S1 and S2. No murmurs, rubs or gallops. Lungs--clear bilaterally, no respiratory distress, no accessory muscle use. Abdomen--normal bowel sounds and soft. Nontender. Nondistended, no hernias or masses, no organomegaly. Extremities--left lower extremity with moderately severe erythema, warmth and swelling with approximately dime sized area of drainage on dorsum of foot. Dermatologic--normal skin turgor, normal color, no abnormal lymph nodes, no rash. Neurologic--cranial nerves II through XII grossly intact. Rheumatologic--normal range of motion except for left foot and ankle. Psychiatric--normal affect. Results & Data Results & Data Vital Signs (Past 12 Hours) Vital Signs Temp Pulse Pulse Resp BP BP Pulse Ox 04/25/25 02:15 96 H 18 157/81 H 94 04/25/25 02:10 100 H 18 106/60 94 04/25/25 01:16 96 H 16 140/80 93 04/25/25 00:59 96 H 18 129/75 92 04/25/25 00:37 100 H 18 135/80 95 04/25/25 00:37 100 H 18 95 04/25/25 00:34 103 H 18 135/80 95 04/25/25 00:01 36.6 C 101 H 20 143/67 H 92 O2 Del Method 04/25/25 02:15 Room Air 04/25/25 02:10 Room Air 04/25/25 01:16 Room Air 04/25/25 00:59 Room Air 04/25/25 00:37 Room Air 04/25/25 00:37 Room Air 04/25/25 00:34 Room Air 04/25/25 00:01 Room Air Laboratory Results Laboratory Results WBC 18.20 K/ul (4.8-10.8) H 04/25/25 00:27 RBC 4.37 M/uL (4.70-6.10) L 04/25/25 00:27 Hgb 10.5 g/dL (14.0-18.0) L 04/25/25 00:27 Hct 34.3 % (42.0-52.0) L 04/25/25 00:27 MCV 78.5 fL (80.0-100.0) L 04/25/25 00:27 MCH 24.0 pg (25.0-34.0) L 04/25/25 00:27 MCHC 30.6 g/dL (32.0-36.0) L 04/25/25 00:27 RDW Std Deviation 43.8 fL (36.4-46.3) 04/25/25 00:27 RDW Coeff of Veronica 15.4 % (11.5-14.5) H 04/25/25 00:27 Plt Count 278 K/uL (130-400) 04/25/25 00:27 MPV 9.1 fL (9.4-12.4) L 04/25/25 00:27 Immature Gran % (Auto) 0.5 % 04/25/25 00:27 Neut % (Auto) 85.3 % 04/25/25 00:27 Lymph % (Auto) 2.7 % 04/25/25 00:27 [place] % (Auto) 10.9 % 04/25/25 00:27 Eos % (Auto) 0.3 % 04/25/25 00:27 Baso % (Auto) 0.3 % 04/25/25 00: Neut # (Auto) 15.53 K/uL (1.40-6.50) H 04/25/25 00: Lymph # (Auto) 0.49 K/uL (1.20-3.40) L 04/25/25 00: [place] # (Auto) 1.98 K/uL (0.11-0.59) H 04/25/25 00: Eos # (Auto) 0.05 K/uL (0.00-0.50) 04/25/25 00: Baso # (Auto) 0.05 K/uL (0.00-0.20) 04/25/25 00: Immature Gran # (Auto) 0.10 K/uL (0.01-0.20) 04/25/25 00: ESR 73 mm/hr (0-20) H 04/25/25 00: Sodium 140 mmol/L (136-145) 04/25/25: Potassium 3.9 mmol/L (3.5-5.1) 04/25/25: Chloride 108 mmol/L (98-107) H 04/25/25 00: Carbon Dioxide 23 mmol/L (21-32) 04/25/25: Anion Gap 9 (3-11) 04/25/25: BUN 34 mg/dl (6-23) H 04/25/25: Creatinine 1.43 mg/dl (0.6-1.4) H 04/25/25: Est Cr Clr Drug Dosing 58.2 ml/min 04/25/25: eGFR 52.38 04/25/25 00: BUN/Creatinine Ratio 23.8 (10-20) H 04/25/25: Glucose 168 mg/dl (70-99(Fasting)) H 04/25/25: Lactate 1.7 mmol/L (0.4-2.0) 04/25/25: Calcium 8.9 mg/dl (8.6-10.3) 04/25/25: Magnesium 1.9 mg/dl (1.7-2.4) 04/25/25 00: Total Bilirubin 0.7 mg/dl (0.2-1.0) 04/25/25 00:27 Direct Bilirubin 0.3 mg/dl (0-0.2) H 04/25/25 02:09 AST 46 U/L (13-39) H 04/25/25 00:27 ALT 41 U/L (7-52) 04/25/25 00:27 Alkaline Phosphatase 95 U/L (34-104) 04/25/25 00:27 Troponin I High Sens 7.0 pg/ml (0-20) 04/25/25 00:27 C-Reactive Protein 28.28 mg/dl (0-0.5) H 04/25/25 00:27 Total Protein 7.1 gm/dl (6.0-8.3) 04/25/25 00:27 Albumin 3.7 gm/dl (3.4-5.0) 04/25/25 00:27 Procalcitonin 0.39 ng/ml (0-0.5) 04/25/25 00:27 Urine Color Yellow 04/25/25 01:37 Urine Appearance Clear (Clear) 04/25/25 01:37 Urine pH 5.5 (4.5-7.5) 04/25/25 01:37 Ur Specific Roma 1.028 (1.000-1.030) 04/25/25 01:37 Urine Protein 1+ (Negative) H 04/25/25 01:37 Urine Glucose (UA) Negative (Negative) 04/25/25 01:37 Urine Ketones Trace (Negative) H 04/25/25 01:37 Urine Blood Negative (Negative) 04/25/25 01:37 Urine Nitrite Negative (Negative) 04/25/25 01:37 Urine Bilirubin Negative (Negative) 04/25/25 01:37 Urine Urobilinogen Negative (Negative) 04/25/25 01:37 Ur Leukocyte Esterase Negative (Negative) 04/25/25 01:37 Urine WBC (Auto) 0-5 /hpf (0-5) 04/25/25 01:37 Urine RBC (Auto) 0-2 /hpf (0-2) 04/25/25 01:37 U Hyaline Cast (Auto) 0-2 /lpf (0-2) 04/25/25 01:37 U Epithel Cells (Auto) 0-2 /hpf (0-2) 04/25/25 01:37 Urine Bacteria (Auto) None Seen (None Seen) 04/25/25 01:37 Urine Comment 04/25/25 01:37 Impressions Foot X-Ray 04/25/25 00:14 EXAM: XR foot LT min 3V routine CLINICAL HISTORY: infx, ? OM TECHNIQUE: Radiograph of left foot was acquired. COMPARISON: CR, 11/22/2021 12:56:27 HEAD NURSE FINDINGS: Interval placement of surgical plates/screws with arthrodesis of 1st,2nd and 3rd tarso-metatarsal joints. Reduced intertarsal joint spaces with multiple areas of subchondral erosions/sclerosis. There is no evidence of acute fracture, dislocation or osseous lesion. The sesamoid complex is well approximated. Tarsal bones are well aligned. The soft tissues are unremarkable. IMPRESSION: 1. Interval placement of surgical plates/screws with arthrodesis of 1st,2nd and 3rd tarso-metatarsal joints. 2. Reduced intertarsal joint spaces with multiple areas of subchondral erosions/sclerosis- Degenerative vs inflammatory arthritis- Stable. 3. Interval increase in adjacent soft tissue thickening at the level of 1st to 3rd tarso-metatarsal joints. Electronically signed by Gerson Lee 04-25-2025 02:00 AM Code Status & VTE Plan Code Status Full code VTE Prophylaxis Plan VTE Prophylaxis will be ordered: Yes PG Care Time/CCT Total # of Minutes Spent Total Time Spent with Patient: Total time spent is greater than 50% in coordination of care (as documented) at patient's floor/unit and/or counseling patient: Coding Level of Care Code 21621 INT INP/OBS CARE 3/75MIN Diagnoses Cellulitis of foot, left L03.116 S/P foot surgery, left Z98.890 Acute kidney injury N17.9
[2025-04-25] MEDS ORDERED: ALBUTEROL HFA 8 GM INHALER INH PRN (03:17)
--- NOTE | 2025-04-25 03:22 | Ultrasound Report ---
EXAM: US venous doppler LE LT CLINICAL HISTORY: ? DVT TECHNIQUE: Ultrasound examination of left lower extremity veins was performed in real time and duplex. One or more of the following were performed- spectral analysis, resistive index, waveform analysis, and pulsed Doppler. COMPARISON: None. FINDINGS: Normal phasic, non-pulsatile and spontaneous flow is noted in visualized left greater saphenous, left common femoral, superficial femoral , profunda femoris, popliteal, anterior tibial, posterior tibial and peroneal veins. Visualized veins of left lower extremity demonstrate normal compressibility. No sonographic evidence of acute deep vein thrombosis (DVT) is detected in the visualized veins of lower extremity. Compression and Augmentation: All evaluated veins compress fully with applied transducer pressure. Augmentation of venous flow is noted with distal compression. Additional Findings: No evidence of intraluminal thrombus. Multiple lymph nodes are identified in the left inguinal region, one of them measures 0.97 cm Mild soft tissue edema seen in left lower extremity IMPRESSION: 1. No sonographic evidence of acute DVT detected at the time of examination. 2. Multiple left inguinal lymph nodes 3. Mild soft tissue edema and left lower extremity Disclaimer: DVT could be missed early in the disease when clot burden is minimal. For patients with moderate and high pretest probability of DVT and negative ultrasound, the [employer] clinical guidelines recommend testing with a D-dimer assay or repeat ultrasound in 5-7 days. If symptoms worsen, the Society of radiologists in ultrasound recommends repeating ultrasound even earlier. Electronically signed by Braulio Phipps 04-25-2025 03:22 AM
[2025-04-25] MEDS: HYDROmorphone INJ 0.5 MG/0.5 ML SYR IV PRN (03:25)
[2025-04-25] MEDS: ACETAMINOPHEN 325 MG TAB PO PRN (04:20)
[2025-04-25] MEDS: ENOXAPARIN INJ 40 MG/0.4 ML SYR SQ SCH (04:47)
[2025-04-25] MEDS: PIPERACILLIN/TAZOBACTAM 4.5 GM/100 ML BAG IV SCH (05:11)
[2025-04-25 06:53] LABS: Cholesterol 118.0 mg/dl (0-200); HDL Cholesterol 66.0 mg/dl; Triglycerides 37.0 mg/dl (0-150)
[2025-04-25] MEDS: CYANOCOBALAMIN (B-12) 500 MCG TABLET PO SCH (08:44)
[2025-04-25] MEDS: ASPIRIN 81 MG ECTAB PO SCH (08:44)
[2025-04-25] MEDS: GABAPENTIN 300 MG CAP PO SCH (08:44)
[2025-04-25] MEDS: DAPTOmycin 600 MG in SYRINGE 0 ML IV SCH (08:45)
[2025-04-25] MEDS: SERTRALINE HCL 50 MG TABLET PO SCH (08:45)
[2025-04-25] MEDS ORDERED: CELECOXIB 100 MG CAP PO SCH (09:00)
[2025-04-25 11:24] LABS: Anion Gap 6.0 (3-11); Blood Urea Nitrogen 31.0 mg/dl (6-23); Calcium 8.3 mg/dl (8.6-10.3); Carbon Dioxide 26.0 mmol/L (21-32); Chloride 108.0 mmol/L (98-107); Creatinine Clr Calc Pharmacy 65.0 ml/min; Glucose 125.0 mg/dl (70-99(Fasting)); Potassium 3.5 mmol/L (3.5-5.1); Sodium 140.0 mmol/L (136-145)
[2025-04-25 11:38] LABS: Hemoglobin A1C 6.4 % (4.5-5.6)
--- NOTE | 2025-04-25 11:51 | Podiatry Consultation ---
Date of Consultation April 25, 2025 Assessment & Plan (1) Cellulitis of foot, left: (2) Infected hardware in left lower extremity: Encounter type: initial encounter Qualified Code(s): T84.7XXA - Infection and inflammatory reaction due to other internal orthopedic prosthetic devices, implants and grafts, initial encounter (3) Osteoarthritis of left foot: Osteoarthritis type: primary Qualified Code(s): M19.072 - Primary osteoarthritis, left ankle and foot Plan Patient was examined and evaluated. We discussed at length etiology and treatment for his left foot infection. We did discuss that this is a significant potentially limb threatening infection given the presence of hardware and significant cellulitis with abscess formation. Roughly 20 cc of purulent drainage was expressed at bedside through manual pressure and curettage. Radiographs do reveal loosening of the hardware through the first tarsometatarsal plate. A CT scan would be beneficial prior to surgical intervention to assess for integrity of the fusion site overall. He will require 2 months of IV antibiotics or so, with definitive deferment to the infectious disease team for this, and removal of the hardware. We will plan on removing the hardware on Sunday or Sunday of this week, schedule permitting. He should continue his IV antibiotics until that time to help improve the infection locally. We will continue to follow. Thank you for the consult, we are always happy to help when possible. History of Present Illness Reason for Consultation: Left foot pain/infection Attending Physician: Waldemar Oneil History of Present Illness Patient seen at bedside this morning. States that he presented to the ED yesterday after failing to improve with home treatment for acute onset of left foot pain. He states that he started developing pain on Sunday with a wound that appeared over the foot then. He saw some drainage and knew it was infected, so began daily hydrogen peroxide washes. He does state that he used no bandages as he thought the peroxide killed the infection and that a bandaid would keep any remaining bacteria in. With this, he continued to develop pain, swelling, and redness to which he had to seek further care. Now, he still has extreme pain to the foot though he denies any systemic signs of infection. He states he feels good otherwise. His podiatric history is positive for a left foot TMTJ arthrodesis performed around three years ago in [place]. He had this for chronic arthritis pain that his local [facility] provider did not feel comfortable fusing. He denies any trauma or injury at any point. He also denies any recent medical history change otherwise. Allergies Allergy/AdvReac Type Severity Reaction Status Date / Time ceftriaxone [From Rocephin] Allergy Rash Verified 01/29/25 12:55 Home Medications Medication Instructions Recorded Confirmed Type cyanocobalamin (vitamin B-12) 1,000 mcg PO QAM 02/04/21 04/25/25 History 1,000 mcg tablet (Vitamin B-12) sertraline 50 mg tablet 50 mg PO DAILY #90 tabs 06/24/24 04/25/25 Rx aspirin 81 mg chewable tablet 81 mg PO DAILY 12/23/24 04/25/25 History esomeprazole magnesium 40 mg 40 mg PO QAM #90 caps 12/23/24 04/25/25 Rx capsule,delayed release (Nexium) famotidine 20 mg tablet (Pepcid) 20 mg PO HS #90 tabs 01/07/25 04/25/25 Rx trazodone 50 mg tablet 50 mg PO HS #90 tabs 01/07/25 04/25/25 Rx celecoxib 200 mg capsule 200 mg PO BID #60 caps 03/05/25 04/25/25 Rx gabapentin 300 mg capsule 300 mg PO TID #90 caps 04/22/25 04/25/25 Rx losartan 50 mg tablet 50 mg PO DAILY #30 tabs 04/22/25 04/25/25 Rx albuterol sulfate 90 mcg/actuation 1 - 2 puff inhalation .EVERY 4-6HR 04/25/25 04/25/25 History aerosol inhaler PRN cough/sob potassium chloride 20 mEq 20 meq PO DAILY 04/25/25 04/25/25 History tablet,extended release Patient History Medical History (Updated 04/25/25 @ 11:50 by Saeed Choi DPM) Obesity (BMI 30.0-34.9) Depression Anxiety Anemia Hyperlipidemia Acid reflux Osteoarthritis Sleep apnea NO LONGER USES CPAP, HAS HAD NO ISSUES. 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 Fusion of spine CERVICAL Family History Other Heart disease Denies family history of Cancer Social History Smoking Status: Never smoker Second Hand Exposure: No; Do You Dip or Chew Tobacco: No; Hx Alcohol Use: No Hx Substance Use: No Preferred Language: Macedonian Communication Ability: Effective Visual Impairment: No Limitations Manager Radio Required: No Beliefs That Will Affect Care: None Current Living Situation: Spouse Current Living Situation Comment: lives at home with Feels Safe at Home: Yes Seatbelt Use: always Assistive Devices: Cane and CPAP Review of Systems Review of Systems: All systems reviewed & are unremarkable except as noted in HPI & below Constitutional: + fever; no chills and no fatigue Eyes: no problem reported Ear, Nose, Mouth, Throat: no problem reported Respiratory: no problem reported Cardiovascular: + edema; no problem reported Gastrointestinal: no nausea, no vomiting and no problem reported Musculoskeletal: no problem reported Integumentary: + skin ulcer, + wounds and + erythema Neurologic: + loss of sensation, + numbness and + pa resthesia; no generalized weakness Psychiatric: no problem reported Physical Exam Physical Exam: Left lower extremity focused exam: DP/PT pulses 2/4 b/l. CFT brisk to the digits. 1.5cm ulceration noted overlying the proximal aspect of the prior TMTJ arthrodesis incision/scar. The wound bed is fibrotic and immediately weeps purulence on removal of dressing. The foot is globally edematous with erythema extending to the distal leg. With manual pressure and use of a curette, copious amounts of purulent drainage immediately expressed from the wound. This is a thick green exudate and concomitant decrease in fluctuance with expression of this abscess is noted. Pain is noted on palpation and expression of purulence. No evidence of profound neuropathy. Foot is abducted at the TMTJ with chronic rigid flatfoot still noted. Radiographs reveal hardware across the TMTJ with loosening of the most proximal screw of the plate construct; this has worked itself out of the plate. There is extensive exogenous bone growth noted with no significant osseous union to the 1st TMTJ and now with chronic appearing arthritic changes to the midtarsal joint as well. Constitutional: WD/WN, vitals as above + acute distress, + ill appearing and + obese Eyes: PERRL, conjunctivae normal, anicteric sclerae ENMT: external ear and nose normal, oropharynx normal Neck: trachea midline, no thyromegaly normal visual inspection Respiratory: normal respiratory effort; no respiratory distress Cardiovascular: Rate/Rhythm: regular rate and regular rhythm Vessels: posterior tibial pulses present and dorsalis pedis pulses present Extremities: normal capillary refill, + pedal edema and + edema; no calf tenderness Chest (Breasts): Chest: normal inspection of chest Gastrointestinal (Abdomen): Inspection/Auscultation: abdomen normal to inspection Percussion/Palpation: + abdomen tender and abdomen soft Musculoskeletal: no cyanosis or clubbing, extremities motor strength 5/5 Head/Neck/Chest: normocephalic and head atraumatic Extremities: extremities normal to inspection Ankle: + skin erythema and + limited ROM of ankle Skin: + ulcer and + erythema Neurologic: normal touch/pain/proprioception and awake; no focal motor d eficits Psychiatric: A+Ox3, euthymic affect Results & Data Vital Signs (Past 12 Hours) Vital Signs Temp Pulse Pulse Resp BP BP BP 04/25/25 09:09 04/25/25 09:00 84 04/25/25 08:07 36.7 C 90 18 107/61 04/25/25 03:34 37.1 C 89 16 142/70 H 04/25/25 03:09 90 04/25/25 02:54 89 16 117/72 04/25/25 02:45 89 18 119/89 04/25/25 02:30 90 18 150/78 H 04/25/25 02:15 96 H 18 157/81 H 04/25/25 02:10 100 H 18 106/60 04/25/25 01:16 96 H 16 140/80 04/25/25 00:59 96 H 18 129/75 04/25/25 00:37 100 H 18 135/80 04/25/25 00:37 100 H 18 04/25/25 00:34 103 H 18 135/80 04/25/25 00:01 36.6 C 101 H 20 143/67 H Pulse Ox O2 Del Method 04/25/25 09:09 Room Air 04/25/25 09:00 04/25/25 08:07 91 Room Air 04/25/25 03:34 94 Room Air 04/25/25 03:09 04/25/25 02:54 99 Room Air 04/25/25 02:45 96 Room Air 04/25/25 02:30 97 Room Air 04/25/25 02:15 94 Room Air 04/25/25 02:10 94 Room Air 04/25/25 01:16 93 Room Air 04/25/25 00:59 92 Room Air 04/25/25 00:37 95 Room Air 04/25/25 00:37 95 Room Air 04/25/25 00:34 95 Room Air 04/25/25 00:01 92 Room Air
--- NOTE | 2025-04-25 12:31 | Electrocardiogram Report ---
Test Reason : Blood Pressure : */* mmHG Vent. Rate : 98 BPM Atrial Rate : 98 BPM P-R Int : 144 ms QRS Dur : 78 ms QT Int : 350 ms P-R-T Axes : 49 14 30 degrees QTcB Int : 446 ms Normal sinus rhythm Nonspecific ST abnormality Abnormal ECG When compared with ECG of 29-Jan-2025 10:37, No significant change was found Confirmed by Bradley Byrd ([id number]) on 04/25/2025 12:30:56 PM Referred By: REFERRED SELF Confirmed By: Bradley Byrd
[2025-04-25 17:54] LABS: A calco-baum cmplx NotReported Not Detected (NotDetected); Bact fragilis Not Reported Not Detected (NotDetected); Blood Culture Id Panel See PCR Comment (NotDetected); C auris Not Reported Not Detected (NotDetected); Calbicans Not Reported Not Detected (NotDetected); Candida glabrata Not Reported Not Detected (NotDetected); Candida krusei Not Reported Not Detected (NotDetected); Cneoformans/gatti Not Reported Not Detected (NotDetected); Cparapsilosis Not Reported Not Detected (NotDetected); Ctropicalis Not Reported Not Detected (NotDetected); E cloacae compx Not Reported Not Detected (NotDetected); Efaecalis Not Reported Not Detected (NotDetected); Efaecium Not Reported Not Detected (NotDetected); Enterobacterales Not Reported Not Detected (NotDetected); Escherichia coli Not Reported Not Detected (NotDetected); H influenzae Not Reported Not Detected (NotDetected); K aerogenes Not Reported Not Detected (NotDetected); Koxytoca Not Reported Not Detected (NotDetected); Kpneumoniae grp Not Reported Not Detected (NotDetected); Lmonocyt Not Reported Not Detected (NotDetected); N meningitidis Not Reported Not Detected (NotDetected); P aeruginosa Not Reported Not Detected (NotDetected); Proteus spp Not Reported Not Detected (NotDetected); Salmonella spp Not Reported Not Detected (NotDetected); Staph lugdunensis Not Reported Not Detected (NotDetected); Staph spp. Not Reported DETECTED (NotDetected); Staphaureus Not Reported DETECTED (NotDetected); Staphepi Not Reported Not Detected (NotDetected); Stenmaltophilia Not Reported Not Detected (NotDetected); Strep agal(GrpB) Not Reported Not Detected (NotDetected); Strep pneum Not Reported Not Detected (NotDetected); Strep pyog (GrpA) Not Reported Not Detected (NotDetected); Strep spp Not Reported Not Detected (NotDetected); mecAC+MREJ Resistant Gene MRSA Not Detected (NotDetected)
[2025-04-25 17:57] LABS: Staphylococcus spp. DETECTED (NotDetected)
[2025-04-25] MEDS: FAMOTIDINE 20 MG TAB PO SCH (21:11)
[2025-04-26 06:07] LABS: Hematocrit (blood only) 29.5 % (42.0-52.0); Hemoglobin 9.0 g/dL (14.0-18.0); Immature Granulocytes # (auto) 0.10 K/uL (0.01-0.20); Immature Granulocytes % (auto) 0.7 %; Mean Corpuscular Hemoglobin 23.7 pg (25.0-34.0); Mean Corpuscular Volume 77.8 fL (80.0-100.0); Platelet Count 259 K/uL (130-400); RDW Standard Deviation 44.3 fL (36.4-46.3); Red Blood Count 3.79 M/uL (4.70-6.10); White Blood Count 14.07 K/ul (4.8-10.8)
[2025-04-26 06:24] LABS: Alanine Aminotransferase 35.0 U/L (7-52); Albumin Globulin Ratio 1.0 (0.9-2); Albumin Level 3.1 gm/dl (3.4-5.0); Alkaline Phosphatase 100.0 U/L (34-104); Anion Gap 8.0 (3-11); Bilirubin,Total 0.7 mg/dl (0.2-1.0); Blood Urea Nitrogen 36.0 mg/dl (6-23); Calcium 8.7 mg/dl (8.6-10.3); Carbon Dioxide 23.0 mmol/L (21-32); Chloride 108.0 mmol/L (98-107); Creatinine Clr Calc Pharmacy 54.6 ml/min; Globulin 3.0 gm/dl (2.5-4.0); Glucose 134.0 mg/dl (70-99(Fasting)); Magnesium 1.8 mg/dl (1.7-2.4); Potassium 3.6 mmol/L (3.5-5.1); Sodium 139.0 mmol/L (136-145); Total Protein 6.1 gm/dl (6.0-8.3)
--- NOTE | 2025-04-26 14:34 | CT Scan Report ---
CT SCAN OF THE RIGHT FOOT WITHOUT IV CONTRAST CLINICAL HISTORY: Left foot pain. Hardware infection. COMPARISON STUDY: Left foot x-rays dated 04/25/2025. MRI of the left foot dated 12/06/2021. TECHNIQUE: CT scan of the left foot was performed from the ankle to the base of the foot. Images are reviewed in the axial, sagittal, and coronal planes. IV contrast was not administered for this examin ation. 3-D reformats are created and assessed. A dose lowering technique was utilized adhering to the principles of ALARA. CT DOSE: 681.47 mGy.cm FINDINGS: The skeletal structures are osteopenic. No acute fracture is clearly seen. Advanced arthrit ic change with bony sclerosis and fragmentation is seen in the midfoot at the tarsometatarsal joints. There has been fusion at the first tarsometatarsal articulation with a buttress plate along the dors al cortex. An additional oblique cortical screw transfixes the first metatarsophalangeal joint, exten ding through the cortex of the medial cuneiform and approximating the middle cuneiform and navicular. There is nonspecific lucency around the distal end of this screw. There are also fixation devices al gabriela the dorsal cortex of the second and third metatarsophalangeal joints. No erosive change is seen t o suggest osteomyelitis. The ankle mortise is maintained. There is diffuse soft tissue edema througho ut the foot, with subcutaneous fluid. This is greatest along the dorsal/lateral aspect of the forefoo t. Question a 2.4 x 1.2 cm organized pocket of fluid along the dorsal aspect of the first metatarsal shaft seen on axial image #265. No soft tissue gas is seen throughout the foot. A plantar heel spur i s observed. The Achilles tendon is intact as visualized. A small ulceration/wound is suggested along the dorsal aspect of the forefoot overlying the navicular. IMPRESSION: 1. No acute fracture is seen. 2. Postsurgical and severe degenerative change in the midfoot as above with bony fragmentation and sc lerosis. This is likely on a postsurgical/degenerative basis. Superimposed infection would be impossi ble to exclude and clinical correlation will be essential. 3. There is lucency seen distally around a cortical screw which extends through the first metatarsoph alangeal joint and approximating the medial cuneiform and anterior navicular. Hardware loosening is n ot excluded. 4. There is diffuse soft tissue edema and subcutaneous fluid throughout the foot, likely representing cellulitis. 5. Question a 2.4 x 1.2 cm organized pocket of fluid along the dorsal aspect of the foot overlying th e first metatarsal shaft. An abscess at this site is not excluded. There is no soft tissue gas. 6. A small ulceration/wound is suggested along the dorsum of the foot. Correlate clinically. ACT 112: Negative or not required by law. Dictated: 04/26/2025 10:07 AM Transcribed: 04/26/2025 11:53 AM Hayley [id number] [email or web address] [id number] Electronically signed by: Hola Garner M.D. 04/26/2025 2:32 PM
[2025-04-26] MEDS: SODIUM CHLORIDE 0.9% 1,000 ML IV SCH (18:38)
--- NOTE | 2025-04-26 22:30 | Hospitalist Progress Note ---
Date of Service April 26, 2025 Assessment & Plan (1) Cellulitis of foot, left: (2) S/P foot surgery, left: (3) Acute kidney injury: Plan The patient is a 69-year-old male with a past medical history including rheumatoid arthritis, balance disorder, MAXIMO, hypertension, anemia, asthma, B12 deficiency, GERD, hypertension, and anxiety/insomnia. He reports that earlier in the week he started develop some redness, and painful swelling of his left foot, and later on in the week developed an open area that is draining. The pain has been getting progressively worse, and he presents to the ED this evening for assessment. X-ray of left foot does not suggest osteomyelitis, but does show hardware for 2nd and 3rd toes, which he notes surgery performed at [facility] in [place] about 3 years ago. WBC is 18.20, glucose 168, creatinine 1.43, magnesium 1.9, CRP 28.28. Patient was given Zosyn 4.5 g IV and was started on vancomycin IV by the emergency department. Vancomycin was discontinued due to labs showing acute kidney injury. [facility] Venous Dopplers have been ordered and are pending at this time. Cellulitis of left foot with drainage/history of left foot surgery- NPO for possible procedure in a.m. Daptomycin IV Zosyn 4.5 g IV every 8 hours Tylenol 650 mg by mouth every 6 hours as needed for mild pain or fever Dilaudid 0.25 mg IV every 3 hours as needed for moderate to severe pain Follow-up wound culture and sensitivity Follow blood culture and sensitivity Consult podiatry: appreciate input. Downgraded patient however when he arrived his clinical picture changes and he is now tachycardic and feverish. Ordered tylenol. gave sign out to overnight resident. Acute kidney injury- Creatinine 1.43, with base 1.03 The patient did receive a partial dose of vancomycin before it could be discontinued Hold losartan and Celebrex to 200 mg twice daily to 1 mg twice daily Placed on LR at 80 mL/h x 1 L Repeat laboratories again showed worsening. Ordered IVF Rheumatoid arthritis- On Celebrex 10 mg twice daily in the outpatient setting, which will be held for now due to YISEL Hypertension- Hold losartan due to YISEL GERD- Change omeprazole to pantoprazole, and famotidine Psychiatric- Continue sertraline Hyperglycemia- Glucose 168 on admission No diagnosis of diabetes Check hemoglobin A1c Obstructive sleep apnea- Nasal cannula O2 as needed at bedtime Peripheral neuropathy- Continue gabapentin 300 mg p.o. 3 times daily Admission and Anticipated Discharge Date Admission Date: April 25, 2025 Subjective Patient reports no new symptoms. Review of Systems Review of Systems: All systems reviewed & are unremarkable except as noted in HPI & below Physical Exam Constitutional: WD/WN, vitals as above Neck: trachea midline, no thyromegaly Respiratory: normal respiratory effort, lungs clear to auscultation Cardiovascular: RRR, no murmur, no edema Skin: left foot swelling. Neurologic: PERRL, EOMI, accommodation nl, no face palsy, no dysarthria Results & Data Results & Data Vital Signs (Past 12 Hours) Vital Signs Temp Pulse Pulse Resp BP Pulse Ox O2 Del Method 04/26/25 17:47 38.1 C H 114 H 20 147/75 H 91 Room Air 04/26/25 15:26 36.7 C 98 H 18 145/71 H 89 L Room Air 04/26/25 13:56 100 H 04/26/25 11:37 36.7 C 87 18 123/68 92 Room Air PG Care Time/CCT Total # of Minutes Spent Total Time Spent with Patient: Total time spent is greater than 50% in coordination of care (as documented) at patient's floor/unit and/or counseling patient: Coding Level of Care Code 07259 SUB INP/OBS CARE 3/50MIN Diagnoses Cellulitis of foot, left L03.116 S/P foot surgery, left Z98.890 Acute kidney injury N17.9
[2025-04-27] MEDS: ONDANSETRON INJ 2 MG/ML 2 ML VIAL IV PRN (00:17)
[2025-04-27 07:39] LABS: Hematocrit (blood only) 30.9 % (42.0-52.0); Hemoglobin 9.4 g/dL (14.0-18.0); Immature Granulocytes # (auto) 0.13 K/uL (0.01-0.20); Immature Granulocytes % (auto) 0.9 %; Mean Corpuscular Hemoglobin 23.7 pg (25.0-34.0); Mean Corpuscular Volume 77.8 fL (80.0-100.0); Platelet Count 283 K/uL (130-400); RDW Standard Deviation 45.3 fL (36.4-46.3); Red Blood Count 3.97 M/uL (4.70-6.10); White Blood Count 14.80 K/ul (4.8-10.8)
[2025-04-27 07:58] LABS: Alanine Aminotransferase 29.0 U/L (7-52); Albumin Globulin Ratio 1.0 (0.9-2); Albumin Level 3.1 gm/dl (3.4-5.0); Alkaline Phosphatase 116.0 U/L (34-104); Anion Gap 8.0 (3-11); Bilirubin,Total 0.7 mg/dl (0.2-1.0); Blood Urea Nitrogen 21.0 mg/dl (6-23); Calcium 8.9 mg/dl (8.6-10.3); Carbon Dioxide 25.0 mmol/L (21-32); Chloride 109.0 mmol/L (98-107); Creatinine Clr Calc Pharmacy 72.9 ml/min; Globulin 3.1 gm/dl (2.5-4.0); Glucose 148.0 mg/dl (70-99(Fasting)); Magnesium 2.0 mg/dl (1.7-2.4); Potassium 3.8 mmol/L (3.5-5.1); Sodium 142.0 mmol/L (136-145); Total Protein 6.2 gm/dl (6.0-8.3)
[2025-04-27] MEDS ORDERED: MIDAZOLAM HCL 1 MG/ML 2ML VIAL ONE (11:50)
[2025-04-27] MEDS ORDERED: PROPOFOL IV EMULSION 10 MG/ML 20 ML VIAL IV ONE ×7 (11:50→13:29)
[2025-04-27] MEDS ORDERED: ONDANSETRON INJ 2 MG/ML 2 ML VIAL IV PRN (12:00)
[2025-04-27] MEDS ORDERED: ATROPINE SULFATE 0.1 MG/ML 10ML SYR IV PRN (12:00)
[2025-04-27] MEDS ORDERED: PROMETHAZINE HCL 6.25 MG in SODIUM CHLORIDE 0.9% 50 ML IV PRN (12:00)
--- NOTE | 2025-04-27 12:04 | Anesthesiology Consultation ---
Date of Service April 27, 2025 Assessment & Plan (1) Encounter for pre-operative examination: Chart Review Chart Review: Acceptable Risk for Surgery and Patient NOT seen in Pre Admission Testing Consults Requested none History Surgery Operation Date: 04/27/25 07:00 Proposed Procedures p Left Foot Incision and Drainage - Saeed Choi DPM s Removal Hardware - Saeed Choi DPM Height/Weight Height: 5 ft 9 in Weight: 97.5 kg Allergies Allergy/AdvReac Type Severity Reaction Status Date / Time ceftriaxone [From Rocephin] Allergy Rash Verified 01/29/25 12:55 Medications Home Medications Medication Instructions Recorded Confirmed Last Taken cyanocobalamin (vitamin B-12) 1,000 mcg PO QAM 02/04/21 04/25/25 2 Days Ago 1,000 mcg tablet (Vitamin B-12) ~01/27/25 sertraline 50 mg tablet 50 mg PO DAILY #90 tabs 06/24/24 04/25/25 2 Days Ago ~01/27/25 aspirin 81 mg chewable tablet 81 mg PO DAILY 12/23/24 04/25/25 2 Days Ago ~01/27/25 esomeprazole magnesium 40 mg 40 mg PO QAM #90 caps 12/23/24 04/25/25 2 Days Ago capsule,delayed release (Nexium) ~01/27/25 famotidine 20 mg tablet (Pepcid) 20 mg PO HS #90 tabs 01/07/25 04/25/25 2 Days Ago ~01/27/25 trazodone 50 mg tablet 50 mg PO HS #90 tabs 01/07/25 04/25/25 2 Days Ago ~01/27/25 celecoxib 200 mg capsule 200 mg PO BID #60 caps 03/05/25 04/25/25 Unknown gabapentin 300 mg capsule 300 mg PO TID #90 caps 04/22/25 04/25/25 Unknown losartan 50 mg tablet 50 mg PO DAILY #30 tabs 04/22/25 04/25/25 Unknown albuterol sulfate 90 mcg/actuation 1 - 2 puff inhalation .EVERY 4-6HR 04/25/25 04/25/25 Unknown aerosol inhaler PRN cough/sob potassium chloride 20 mEq 20 meq PO DAILY 04/25/25 04/25/25 Unknown tablet,extended release Active Medications Generic Name Dose Route Start Last Admin Trade Name Freq PRN Reason Stop Dose Admin Acetaminophen 650 mg 04/25/25 03:17 04/27/25 00:12 Acetaminophen 325 Mg Tab PO 05/25/25 03:16 650 mg Q4H PRN Administration Pain or Fever Aspirin 81 mg 04/25/25 09:00 04/27/25 08:31 Aspirin 81 Mg Ectab PO 05/25/25 08:59 81 mg DAILY RADHA Administration Cyanocobalamin 1,000 mcg 04/25/25 09:00 04/27/25 08:31 Cyanocobalamin (B-12) 500 Mcg Tablet PO 05/25/25 08:59 1,000 mcg QAM RADHA Administration Famotidine 20 mg 04/25/25 21:00 04/26/25 20:37 Famotidine 20 Mg Tab PO 05/25/25 20:59 20 mg HS RADHA Administration Gabapentin 300 mg 04/25/25 09:00 04/27/25 08:31 Gabapentin 300 Mg Cap PO 05/25/25 08:59 300 mg TID RADHA Administration Hydromorphone HCl 0.25 mg 04/25/25 02:38 04/27/25 11:58 Hydromorphone Inj 0.5 Mg/0.5 Ml Syr IV 05/09/25 02:37 0.25 mg Q3H PRN Administration Mod-Sev Pain (Scale 4-10) Daptomycin 600 mg/ Syringe 12 mls @ 6 mls/min 04/25/25 09:00 04/27/25 09:00 IV 05/02/25 08:59 6 mls/min Q24H RADHA Administration Protocol Piperacillin Sod/Tazobactam Sod 4.5 gm in 100 mls @ 25 mls/hr 04/25/25 06:00 04/27/25 10:34 Zosyn IV 05/02/25 05:59 Infused Q8H RADHA Infusion Protocol Ondansetron HCl 4 mg 04/25/25 03:17 04/27/25 00:17 Ondansetron Inj 2 Mg/Ml 2 Ml Vial IV 05/25/25 03:16 4 mg Q6H PRN Administration NAUSEA/VOMITING Pantoprazole Sodium 40 mg 04/25/25 09:00 04/27/25 08:31 Pantoprazole 40 Mg Tab PO 05/25/25 08:59 40 mg QAM RADHA Administration Sertraline HCl 50 mg 04/25/25 09:00 04/27/25 08:31 Sertraline Hcl 50 Mg Tablet PO 05/25/25 08:59 50 mg DAILY RADHA Administration Trazodone HCl 50 mg 04/25/25 21:00 04/26/25 20:38 Trazodone Hcl 50 Mg Tab PO 05/25/25 20:59 50 mg HS RADHA Administration Past Medical History Medical History (Updated 04/27/25 @ 12:07 by Cayden Gresham MD) Essential hypertension Rheumatoid arthritis 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 Fusion of spine CERVICAL Social History Smoking Status: Never smoker Do You Dip or Chew Tobacco: No Hx Alcohol Use: No Hx Substance Use: No substance use type: does not use Physical Exam Vital Signs Last Vital Signs Temp 36.8 C 04/27/25 07:44 Pulse 74 04/27/25 07:44 Resp 14 04/27/25 07:44 BP 160/84 H 04/27/25 10:41 Pulse Ox 96 04/27/25 07:44 O2 Del Method Room Air 04/27/25 07:44 O2 Flow Rate 2 04/26/25 02:49 Testing Laboratory Results 04/27/25 07:10 04/27/25 07:10 Hemoglobin A1c 6.4 % (4.5-5.6) H 04/25/25 10:39 Urine Color Yellow 04/25/25 01:37 Urine Appearance Clear (Clear) 04/25/25 01:37 Urine pH 5.5 (4.5-7.5) 04/25/25 01:37 Ur Specific Felicity 1.028 (1.000-1.030) 04/25/25 01:37 Urine Protein 1+ (Negative) H 04/25/25 01:37 Urine Glucose (UA) Negative (Negative) 04/25/25 01:37 Urine Ketones Trace (Negative) H 04/25/25 01:37 Urine Nitrite Negative (Negative) 04/25/25 01:37 Ur Leukocyte Esterase Negative (Negative) 04/25/25 01:37 Urine WBC (Auto) 0-5 /hpf (0-5) 04/25/25 01:37 Urine RBC (Auto) 0-2 /hpf (0-2) 04/25/25 01:37 U Hyaline Cast (Auto) 0-2 /lpf (0-2) 04/25/25 01:37 U Epithel Cells (Auto) 0-2 /hpf (0-2) 04/25/25 01:37 Urine Bacteria (Auto) None Seen (None Seen) 04/25/25 01:37 04/25/25 00:27 Aerobic Blood Culture - Final Blood Staphylococcus aureus Anaerobic Blood Culture - Final Staphylococcus aureus 04/25/25 00:22 Gram Stain - Final Foot,Left Wound Culture - Final Proteus mirabilis Staphylococcus aureus 04/25/25 01:10 Aerobic Blood Culture - Preliminary Blood No growth in Aerobic bottle after 48 hours. Anaerobic Blood Culture - Preliminary No growth in Anaerobic bottle after 48 hours. 04/25/25 11:44 Gram Stain - Final Foot,Left Aerobic and Anaerobic Culture - Preliminary Proteus mirabilis Staphylococcus aureus Electrocardiogram Date: 04/25/25 DICTATED BY: Bradley Byrd MD Test Reason : Blood Pressure : */* mmHG Vent. Rate : 98 BPM Atrial Rate : 98 BPM P-R Int : 144 ms QRS Dur : 78 ms QT Int : 350 ms P-R-T Axes : 49 14 30 degrees QTcB Int : 446 ms Normal sinus rhythm Nonspecific ST abnormality Abnormal ECG When compared with ECG of 29-Jan-2025 10:37, No significant change was found Confirmed by Bradley Byrd ([id number]) on 04/25/2025 12:30:56 PM
--- NOTE | 2025-04-27 12:21 | History & Physical Bridge Note ---
Date of Service April 27, 2025 History & Physical Bridge Note I have examined the patient, reviewed the History & Physical and in the interval since the performance of the History & Physical I have noted the following changes of clinical significance: no changes noted. Foot remains erythematous, edematous, and drainage continues. Fluctuance palpable again. CT reviewed. Plan for hardware removal and I&D. Consent obtained. Preoperative instructions, postoperative instructions, relative risks, and outcomes all discussed. All questions answered.
[2025-04-27] MEDS: LACTATED RINGER'S 1,000 ML IV SCH (12:28)
[2025-04-27] MEDS ORDERED: KETAMINE HCL 10MG/ML SYR ONE (12:42)
[2025-04-27] MEDS ORDERED: ONDANSETRON INJ 2 MG/ML 2 ML VIAL ONE (12:50)
[2025-04-27] MEDS ORDERED: GLYCOPYRROLATE 0.2 MG/ML VIAL ONE (12:51)
[2025-04-27] MEDS: BUPIVACAINE 0.5 % 5 MG/1 ML MPF 30ML VIAL ONE (13:06)
[2025-04-27] MEDS ORDERED: PHENYLEPHRINE 100MCG/ML 5ML SYR ONE (13:18)
[2025-04-27] MEDS ORDERED: PHENYLEPHRINE HCL 10 MG/ML VIAL ONE (13:26)
--- NOTE | 2025-04-27 13:44 | Post Operative Brief Note ---
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
--- NOTE | 2025-04-27 14:58 | Anesthesiology Progress Note ---
Date of Service April 27, 2025 Anesthesia Post Procedure Vital Signs Vital Signs: Temp Pulse Pulse Resp BP Pulse Ox O2 Del Method 04/27/25 14:30 94 H 12 99/78 L 93 Oxymask 04/27/25 14:20 93 H 12 130/76 94 Oxymask 04/27/25 14:10 94 H 12 137/71 94 Oxymask 04/27/25 14:00 96 H 12 122/74 94 Oxymask 04/27/25 13:50 36.7 C 94 H 14 122/64 93 Oxymask 04/27/25 12:22 36.8 C 92 H 20 157/78 H 90 Room Air 04/27/25 11:50 36.4 C L 87 16 148/78 H 90 Room Air 04/27/25 10:41 160/84 H 04/27/25 07:44 36.8 C 74 14 172/86 H 96 Room Air 04/27/25 07:22 Room Air 04/27/25 01:23 37.4 C 04/27/25 00:10 37.9 C H 04/26/25 23:15 37.7 C H 106 H 20 147/72 H 90 Room Air 04/26/25 19:20 Room Air 04/26/25 17:47 38.1 C H 114 H 20 147/75 H 91 Room Air 04/26/25 15:26 36.7 C 98 H 18 145/71 H 89 L Room Air O2 Flow Rate 04/27/25 14:30 2 04/27/25 14:20 2 04/27/25 14:10 4 04/27/25 14:00 4 04/27/25 13:50 6 04/27/25 12:22 04/27/25 11:50 04/27/25 10:41 04/27/25 07:44 04/27/25 07:22 04/27/25 01:23 04/27/25 00:10 04/26/25 23:15 04/26/25 19:20 04/26/25 17:47 04/26/25 15:26 Pain Intensity Left Foot: Pain Intensity: 9 Transfer of Care Handoff Completed per policy Notes Mental Status: alert / awake / arousable and participated in evaluation Patient Amnestic to Procedure: Yes Nausea / Vomiting: adequately controlled Pain: adequately controlled Airway Patency, RR, SpO2: stable & adequate BP & HR: stable & adequate Hydration State: stable & adequate Anesthetic Complications: no major complications apparent and Pt Satisfied with anesthetic care
--- NOTE | 2025-04-27 18:53 | XCELERA ---
[id number]
--- NOTE | 2025-04-27 23:26 | Hospitalist Progress Note ---
Date of Service April 27, 2025 Assessment & Plan (1) Cellulitis of foot, left: (2) S/P foot surgery, left: (3) Acute kidney injury: Plan The patient is a 69-year-old male with a past medical history including rheumatoid arthritis, balance disorder, MAXIMO, hypertension, anemia, asthma, B12 deficiency, GERD, hypertension, and anxiety/insomnia. He reports that earlier in the week he started develop some redness, and painful swelling of his left foot, and later on in the week developed an open area that is draining. The pain has been getting progressively worse, and he presents to the ED this evening for assessment. X-ray of left foot does not suggest osteomyelitis, but does show hardware for 2nd and 3rd toes, which he notes surgery performed at [facility] in [place] about 3 years ago. WBC is 18.20, glucose 168, creatinine 1.43, magnesium 1.9, CRP 28.28. Patient was given Zosyn 4.5 g IV and was started on vancomycin IV by the emergency department. Vancomycin was discontinued due to labs showing acute kidney injury. Patient was referred for admission to the [facility]. Venous Dopplers have been ordered and are pending at this time. Cellulitis of left foot with drainage/history of left foot surgery- Gram positive bacteremia with staph aureus Daptomycin IV Zosyn 4.5 g IV every 8 hours Tylenol 650 mg by mouth every 6 hours as needed for mild pain or fever Dilaudid 0.25 mg IV every 3 hours as needed for moderate to severe pain Follow-up wound culture and sensitivity culture no showing staph aureus, ordered repeat blood culture obtaining TTE Acute kidney injury- Creatinine 1.43, with base 1.03 The patient did receive a partial dose of vancomycin before it could be discontinued Hold losartan and Celebrex to 200 mg twice daily to 1 mg twice daily Placed on LR at 80 mL/h x 1 L Repeat laboratories again showed worsening. creatinine improved. Rheumatoid arthritis- On Celebrex 10 mg twice daily in the outpatient setting, which will be held for now due to YISEL Hypertension- Hold losartan due to YISEL GERD- Change omeprazole to pantoprazole, and famotidine Psychiatric- Continue sertraline Hyperglycemia- Glucose 168 on admission No diagnosis of diabetes Check hemoglobin A1c Obstructive sleep apnea- Nasal cannula O2 as needed at bedtime Peripheral neuropathy- Continue gabapentin 300 mg p.o. 3 times daily Admission and Anticipated Discharge Date Admission Date: April 25, 2025 Subjective Patient ireports no new symptoms. Physical Exam Constitutional: WD/WN, vitals as above Neck: trachea midline, no thyromegaly Respiratory: normal respiratory effort, lungs clear to auscultation Cardiovascular: RRR, no murmur, no edema Neurologic: PERRL, EOMI, accommodation nl, no face palsy, no dysarthria Results & Data Results & Data Vital Signs (Past 12 Hours) Vital Signs Temp Pulse Pulse Resp BP Pulse Ox O2 Del Method 04/27/25 19:40 Nasal Cannula 04/27/25 19:26 37.9 C H 90 18 133/71 96 Nasal Cannula 04/27/25 18:43 38 C H 88 18 143/74 H 93 Nasal Cannula 04/27/25 17:32 36.9 C 83 18 133/77 95 Nasal Cannula 04/27/25 16:32 37 C 88 18 126/75 96 Nasal Cannula 04/27/25 16:11 36.8 C 86 18 133/81 94 Nasal Cannula 04/27/25 15:38 37.2 C 89 18 156/90 H 94 Nasal Cannula 04/27/25 15:35 Nasal Cannula 04/27/25 15:25 77 13 134/85 96 Nasal Cannula 04/27/25 15:10 37.0 C 90 12 134/82 97 Nasal Cannula 04/27/25 15:00 92 H 12 137/86 95 Nasal Cannula 04/27/25 14:50 90 14 136/84 95 Oxymask 04/27/25 14:40 91 H 12 145/85 H 95 Oxymask 04/27/25 14:30 94 H 12 99/78 L 93 Oxymask 04/27/25 14:20 93 H 12 130/76 94 Oxymask 04/27/25 14:10 94 H 12 137/71 94 Oxymask 04/27/25 14:00 96 H 12 122/74 94 Oxymask 04/27/25 13:50 36.7 C 94 H 14 122/64 93 Oxymask 04/27/25 12:22 36.8 C 92 H 20 157/78 H 90 Room Air 04/27/25 11:50 36.4 C L 87 16 148/78 H 90 Room Air O2 Flow Rate 04/27/25 19:40 2 04/27/25 19:26 2 04/27/25 18:43 2 04/27/25 17:32 2 04/27/25 16:32 2 04/27/25 16:11 2 04/27/25 15:38 2 04/27/25 15:35 2 04/27/25 15:25 2 04/27/25 15:10 2 04/27/25 15:00 2 04/27/25 14:50 2 04/27/25 14:40 2 04/27/25 14:30 2 04/27/25 14:20 2 04/27/25 14:10 4 04/27/25 14:00 4 04/27/25 13:50 6 04/27/25 12:22 04/27/25 11:50 PG Care Time/CCT Total # of Minutes Spent Total Time Spent with Patient: Total time spent is greater than 50% in coordination of care (as documented) at patient's floor/unit and/or counseling patient: Coding Level of Care Code 35660 SUB INP/OBS CARE 3/50MIN Diagnoses Cellulitis of foot, left L03.116 S/P foot surgery, left Z98.890 Acute kidney injury N17.9
[2025-04-28 07:30] LABS: Hematocrit (blood only) 29.5 % (42.0-52.0); Hemoglobin 8.8 g/dL (14.0-18.0); Mean Corpuscular Hemoglobin 23.5 pg (25.0-34.0); Mean Corpuscular Volume 78.9 fL (80.0-100.0); Platelet Count 284 K/uL (130-400); RDW Standard Deviation 45.3 fL (36.4-46.3); Red Blood Count 3.74 M/uL (4.70-6.10); White Blood Count 10.46 K/ul (4.8-10.8)
[2025-04-28 07:47] LABS: Anion Gap 7.0 (3-11); Blood Urea Nitrogen 18.0 mg/dl (6-23); Calcium 8.9 mg/dl (8.6-10.3); Carbon Dioxide 28.0 mmol/L (21-32); Chloride 106.0 mmol/L (98-107); Creatinine Clr Calc Pharmacy 80.5 ml/min; Glucose 125.0 mg/dl (70-99(Fasting)); Magnesium 2.1 mg/dl (1.7-2.4); Potassium 3.9 mmol/L (3.5-5.1); Sodium 141.0 mmol/L (136-145)
--- NOTE | 2025-04-28 21:09 | Podiatry Progress Note ---
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 - Surgical dressing left intact today POD#1. - Will change dressing tomorrow if inpatient. - Surgical pathology pending, but should be treated as osteomyelitis with obvious infection surrounding hardware. - Discussed this is the short term fix, with 6-8 weeks IV antibiotics likely required for better source control, - Could revisit revisional arthrodesis in several months after the infection is provably cleared via bone biopsy. - Will continue to follow, but ok to d/c with outpatient follow-up whens table per medicine. - Recommend ID consult for antibiotic planning long term. Admission and Anticipated Discharge Date Admission Date: April 25, 2025 Subjective Patient seen at bedside at lunchtime. Has good appetite. No new concerns. Foot feels much better today, POD#1. Curious about his postoperative plan. Review of Systems Constitutional: + fever; no chills and no fatigue Eyes: no problem reported Ear, Nose, Mouth, Throat: no problem reported Respiratory: no problem reported Cardiovascular: + edema; no problem reported Gastrointestinal: no nausea, no vomiting and no problem reported Musculoskeletal: no problem reported Integumentary: + skin ulcer, + wounds and + erythema Neurologic: + loss of sensation, + numbness and + pa resthesia; no generalized weakness Psychiatric: no problem reported Physical Exam Physical Exam: Profound purulent drainage surrounding the 1st TMTJ arthrodesis site was noted intraoperatively. Corn Crop Supervisor bone specimens sent for pathology, still pending. Primary closure attempted, with sutures intact under surgical dressing. Constitutional: WD/WN, vitals as above + acute distress, + ill appearing and + obese Eyes: PERRL, conjunctivae normal, anicteric sclerae ENMT: external ear and nose normal, oropharynx normal Neck: trachea midline, no thyromegaly normal visual inspection Respiratory: normal respiratory effort; no respiratory distress Cardiovascular: Rate/Rhythm: regular rate and regular rhythm Vessels: posterior tibial pulses present and dorsalis pedis pulses present Extremi ties: normal capillary refill, + pedal edema and + edema; no calf tenderness Chest (Breasts): Chest: normal inspection of chest Gastrointestinal (Abdomen): Inspection/Auscultation: abdomen normal to inspection Percussion/Palpation: + abdomen tender and abdomen soft Musculoskeletal: no cyanosis or clubbing, extremities motor strength 5/5 Head/Neck/Chest: normocephalic and head atraumatic Extremities: extremities normal to inspection Ankle: + skin erythema and + limited ROM of ankle Skin: + ulcer and + erythema Neurologic: normal touch/pain/proprioception and awake; no focal motor deficits Psychiatric: A+Ox3, euthymic affect Results & Data Results & Data Vital Signs (Past 12 Hours) Vital Signs Temp Pulse Resp BP Pulse Ox O2 Del Method O2 Flow Rate 04/28/25 19:07 37.1 C 92 H 20 158/74 H 90 Room Air 04/28/25 16:06 37.1 C 82 18 142/73 H 92 Room Air 04/28/25 13:35 36.2 C L 88 22 153/78 H 90 Room Air 04/28/25 11:22 36.5 C 91 H 20 161/78 H 92 Nasal Cannula 2 (2) 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
--- NOTE | 2025-04-28 21:13 | Hospitalist Progress Note ---
Date of Service April 28, 2025 Assessment & Plan (1) Cellulitis of foot, left: (2) S/P foot surgery, left: (3) Acute kidney injury: Plan The patient is a 69-year-old male with a past medical history including rheumatoid arthritis, balance disorder, MAXIMO, hypertension, anemia, asthma, B12 deficiency, GERD, hypertension, and anxiety/insomnia. He reports that earlier in the week he started develop some redness, and painful swelling of his left foot, and later on in the week developed an open area that is draining. The pain has been getting progressively worse, and he presents to the ED this evening for assessment. X-ray of left foot does not suggest osteomyelitis, but does show hardware for 2nd and 3rd toes, which he notes surgery performed at [facility] in [place] about 3 years ago. WBC is 18.20, glucose 168, creatinine 1.43, magnesium 1.9, CRP 28.28. Patient was given Zosyn 4.5 g IV and was started on vancomycin IV by the emergency department. Vancomycin was discontinued due to labs showing acute kidney injury. Patient was [facility]. Venous Dopplers have been ordered and are pending at this time. Cellulitis of left foot with drainage/history of left foot surgery- Gram positive bacteremia with staph aureus Wound culture grew proteus mirabilis and staph aureus. switch from : Daptomycin IV, Zosyn 4.5 g IV every 8 hours Now on cefazolin Tylenol 650 mg by mouth every 6 hours as needed for mild pain or fever Dilaudid 0.25 mg IV every 3 hours as needed for moderate to severe pain ordered repeat blood culture obtaining TTE: negative. Acute kidney injury- Creatinine 1.43, with base 1.03 The patient did receive a partial dose of vancomycin before it could be discontinued Hold losartan and Celebrex to 200 mg twice daily to 1 mg twice daily creatinine improved. Rheumatoid arthritis- On Celebrex 10 mg twice daily in the outpatient setting, which will be held for now due to YISEL Hypertension- Hold losartan due to YISEL GERD- Change omeprazole to pantoprazole, and famotidine Psychiatric- Continue sertraline Hyperglycemia- Glucose 168 on admission No diagnosis of diabetes Check hemoglobin A1c Obstructive sleep apnea- Nasal cannula O2 as needed at bedtime Peripheral neuropathy- Continue gabapentin 300 mg p.o. 3 times daily Admission and Anticipated Discharge Date Admission Date: April 25, 2025 Subjective 69 yo male reports no new symptoms. Denies any fever, chills, nausea, vomiting. Review of Systems Review of Systems: All systems reviewed & are unremarkable except as noted in HPI & below Physical Exam Constitutional: WD/WN, vitals as above Neck: trachea midline, no thyromegaly Respiratory: normal respiratory effort, lungs clear to auscultation Cardiovascular: RRR, no murmur, no edema Neurologic: PERRL, EOMI, accommodation nl, no face palsy, no dysarthria Results & Data Results & Data Vital Signs (Past 12 Hours) Vital Signs Temp Pulse Resp BP Pulse Ox O2 Del Method O2 Flow Rate 04/28/25 19:07 37.1 C 92 H 20 158/74 H 90 Room Air 04/28/25 16:06 37.1 C 82 18 142/73 H 92 Room Air 04/28/25 13:35 36.2 C L 88 22 153/78 H 90 Room Air 04/28/25 11:22 36.5 C 91 H 20 161/78 H 92 Nasal Cannula 2 PG Care Time/CCT Total # of Minutes Spent Total Time Spent with Patient: Total time spent is greater than 50% in coordination of care (as documented) at patient's floor/unit and/or counseling patient: Coding Level of Care Code 02310 SUB INP/OBS CARE 3/50MIN Diagnoses Cellulitis of foot, left L03.116 S/P foot surgery, left Z98.890 Acute kidney injury N17.9
[2025-04-29 06:56] LABS: Hematocrit (blood only) 27.7 % (42.0-52.0); Hemoglobin 8.6 g/dL (14.0-18.0); Mean Corpuscular Hemoglobin 24.0 pg (25.0-34.0); Mean Corpuscular Volume 77.2 fL (80.0-100.0); Platelet Count 332 K/uL (130-400); RDW Standard Deviation 44.9 fL (36.4-46.3); Red Blood Count 3.59 M/uL (4.70-6.10); White Blood Count 10.33 K/ul (4.8-10.8)
[2025-04-29 07:21] LABS: Anion Gap 8.0 (3-11); Blood Urea Nitrogen 18.0 mg/dl (6-23); Calcium 8.9 mg/dl (8.6-10.3); Carbon Dioxide 26.0 mmol/L (21-32); Chloride 106.0 mmol/L (98-107); Creatinine Clr Calc Pharmacy 83.2 ml/min; Glucose 120.0 mg/dl (70-99(Fasting)); Potassium 3.9 mmol/L (3.5-5.1); Sodium 140.0 mmol/L (136-145)
--- NOTE | 2025-04-29 11:11 | Infectious Disease Consult ---
Date of Consultation April 29, 2025 Assessment & Plan (1) Foot osteomyelitis, left: Plan Problems: #L foot hardware-associated infection with concern for osteomyelitis: s/p I&D and hardware removal 04/27/25 # Micro: 04/27 BCx x2: NGTD 04/25 L foot wound drainage cx: Proteus mirabilis, MSSA. GS few GPCs 04/25 BCx x2: MSSA in 2/4 bottles in 1 set. 04/25 L foot superficial wound cx: Proteus mirabilis (R cipro, levo, TMP/SMX. 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 Found to have hardware- associated osteomyelitis c/b MSSA bacteremia. On presentation, pt was afebrile, HR 101. Noted L foot erythema, edema, with dime-sized open wound on dorsal foot draining purulent material. Labs showed WBC 18.2, Cr 1.43, ESR 73, CRP 28.28. L foot XR with surgical plates/screws with arthrodesis of 1st, 2nd, and 3rd tarso-metatarsal joints. Interval increase in adjacent soft tissue thickening at level of 1st to 3rd tarso-metatarsal joints. He was started on vanc and Zosyn in the ED. Vanc then switched to dapto given YISEL. BCx and superficial L foot wound cx obtained. Podiatry was consulted, and expressed ~20 cc purulent drainage at bedside through manual pressure and curettage. CT L foot without contrast showed postsurgical and severe degenerative change in midfoot. Lucency around a cortical screw which extends through the first MTPJ and approximating the medial cuneiform and anterior navicular, hardware loosening not excluded. Diffuse soft tissue edema and subcutaneous fluid throughout the foot, likely representing cellulitis. Question of 2.4 x 1.2 cm organized pocket of fluid along the dorsal aspect of the foot overlying the first metatarsal shaft, abscess not excluded. Small ulceration/wound along dorsum of foot. Admission blood cultures grew MSSA in 2/4 bottles. TTE negative for vegetations. Repeat blood cultures from 04/27 NGTD. L foot wound drainage cx grew Proteus mirabilis and MSSA. Pt was taken to the OR on 04/27 for L foot I&D and removal of infected hardware. Full operative note not yet available, but podiatry recommends treating as osteomyelitis given obvious infection surrounding the hardware. The first TMTJ hardware was all removed. He has two adele that were much further lateral in a separate joint that were not removed, but seemed to be separate from this infection. Podiatry would like to treat the acute infection, and then revisit revisional arthrodesis in several months after the infection is treated. Discussion: MSSA bacteremia likely 2/2 L foot infection. Repeat blood cultures from 04/27 are NGTD, and TTE negative for vegetations. Regardless, will need a 6 week course of IV antibiotics for presumed osteomyelitis of the L foot. All of the hardware at the site of concern has been removed. Recommendations: - Continue cefazolin 2 g IV q8h to complete a 6 week course (04/27 - 06/07/25) - Will need PICC line - Check weekly CBC with diff, CMP while on cefazolin to monitor for toxicity - I will arrange for follow-up in telemedicine OPAT clinic - See below antibiotic discharge summary ID Outpatient Discharge summary, Discharging Physician please order the following on discharge: Diagnosis: L foot osteomyelitis, MSSA bacteremia Organism: Proteus mirabilis, MSSA Antibiotic: (dose and frequency): cefazolin 2 g IV q8h Start of therapy: 04/27/25 End of therapy: 06/07/25 Labs should be faxedto:[facility] [phone] Labs needed and frequency: CBC with diff, CMP weekly The Infectious Disease (ID) clinic will contact the patient to schedule a follow-up appointment. If you have not heard from the clinic within one week of discharge, please call the ID clinic at [phone] ask for [facility]. Clinic Address [address] [place] [id number] Office (P) [phone] Appointment-time frame:~5 weeks Consultation Information Consultation was provided via telemedicine using two-way real-time interactive telecommunication between the patient and the telemedicine provider. For the duration of the visit, the provider was performing the assessment from a different facility than the patient. This includesuse of bluetooth stethoscope forauscultationperformed by the telepresenter that the telemedicine provider can hear if described in the physical exam. Clean Room Technician contact information: Please call [facility] Center [phone]. (Phone Number For Physician Use Only) After establishing a telemedicine visit, patient was: Patient was verified with two unique identifiers, Patient/authorized rep acknowledged consent and understanding and Gave permission to continue telehealth session Time Spent with Patient: Initial => 55 min History of Present Illness Reason for Consultation: MSSA bacteremia, L foot infection, probable OM Attending Physician: Kamlesh Xavier MD History of Present Illness 69 yo M with history of rheumatoid arthritis, balance disorder, MAXIMO, HTN, anemia, asthma, B12 deficiency, GERD, HTN, R TKA (07/2017) c/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 On presentation, pt was afebrile, HR 101. Noted L foot erythema, edema, with dime-sized open wound on dorsal foot draining purulent material. Labs showed WBC 18.2, Cr 1.43, ESR 73, CRP 28.28. L foot XR with surgical plates/screws with arthrodesis of 1st, 2nd, and 3rd tarso-metatarsal joints. Interval increase in adjacent soft tissue thickening at level of 1st to 3rd tarso-metatarsal joints. He was started on vanc and Zosyn in the ED. Vanc then switched to dapto given YISEL. BCx and superficial L foot wound cx obtained. Podiatry was consulted, and expressed ~20 cc purulent drainage at bedside through manual pressure and curettage. CT L foot without contrast showed postsurgical and severe degenerative change in midfoot. Lucency around a cortical screw which extends through the first MTPJ and approximating the medial cuneiform and anterior navicular, hardware loosening not excluded. Diffuse soft tissue edema and subcutaneous fluid throughout the foot, likely representing cellulitis. Question of 2.4 x 1.2 cm organized pocket of fluid along the dorsal aspect of the foot overlying the first metatarsal shaft, abscess not excluded. Small ulceration/wound along dorsum of foot. Admission blood cultures grew MSSA in 2/4 bottles. TTE negative for vegetations. Repeat blood cultures from 04/27 NGTD. L foot wound drainage cx grew Proteus mirabilis and MSSA. Pt was taken to the OR on 04/27 for L foot I&D and removal of infected hardware. Full operative note not yet available, but podiatry recommends treating as osteomyelitis given obvious infection surrounding the hardware. The first TMTJ hardware was all removed. He has two adele that were much further lateral in a separate joint that were not removed, but seemed to be separate from this infection. Podiatry would like to treat the acute infection, and then revisit revisional arthrodesis in several months after the infection is treated. Allergies Allergy/AdvReac Type Severity Reaction Status Date / Time ceftriaxone [From Rocephin] Allergy Rash Verified 04/27/25 12:22 Home Medications Medication Instructions Recorded Confirmed Type cyanocobalamin (vitamin B-12) 1,000 mcg PO QAM 02/04/21 04/25/25 History 1,000 mcg tablet (Vitamin B-12) sertraline 50 mg tablet 50 mg PO DAILY #90 tabs 06/24/24 04/25/25 Rx aspirin 81 mg chewable tablet 81 mg PO DAILY 12/23/24 04/25/25 History esomeprazole magnesium 40 mg 40 mg PO QAM #90 caps 12/23/24 04/25/25 Rx capsule,delayed release (Nexium) famotidine 20 mg tablet (Pepcid) 20 mg PO HS #90 tabs 01/07/25 04/25/25 Rx trazodone 50 mg tablet 50 mg PO HS #90 tabs 01/07/25 04/25/25 Rx celecoxib 200 mg capsule 200 mg PO BID #60 caps 03/05/25 04/25/25 Rx gabapentin 300 mg capsule 300 mg PO TID #90 caps 04/22/25 04/25/25 Rx losartan 50 mg tablet 50 mg PO DAILY #30 tabs 04/22/25 04/25/25 Rx albuterol sulfate 90 mcg/actuation 1 - 2 puff inhalation .EVERY 4-6HR 04/25/25 04/25/25 History aerosol inhaler PRN cough/sob potassium chloride 20 mEq 20 meq PO DAILY 04/25/25 04/25/25 History tablet,extended release Patient History Medical History (Updated 04/29/25 @ 11:38 by Mayuri Ma MD) Essential hypertension Rheumatoid arthritis 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 Fusion of spine CERVICAL Family History Other Heart disease Denies family history of Cancer Social History Smoking Status: Never smoker Second Hand Exposure: No; Do You Dip or Chew Tobacco: No; Hx Alcohol Use: No Hx Substance Use: No Preferred Language: Armenian Communication Ability: Effective Visual Impairment: No Limitations Tongue And Quarter Stitcher Required: No Beliefs That Will Affect Care: None Current Living Situation: Spouse Current Living Situation Comment: lives at home with Feels Safe at Home: Yes Seatbelt Use: always Assistive Devices: Cane and Walker Review of System A complete ROS was performed and is negative except as mentioned in the HPI. Physical Exam Physical Exam: GEN: sitting up in NAD. RESP: No increased work of breathing NEURO: Alert and oriented. Answers all questions appropriately. Speech not slurred. Results & Data Vital Signs (Past 12 Hours) Vital Signs Temp Pulse Resp BP Pulse Ox O2 Del Method O2 Flow Rate 04/29/25 07:28 37.2 C 90 16 169/71 H 96 Nasal Cannula 3.5 04/28/25 23:38 20 96 Nasal Cannula 4 04/28/25 23:04 37.4 C 96 H 22 93 Nasal Cannula 4 Laboratory Results Short CBC 04/29/25 Range/Units 06:19 WBC 10.33 (4.8-10.8) K/ul Hgb 8.6 L (14.0-18.0) g/dL Hct 27.7 L (42.0-52.0) % Plt Count 332 (130-400) K/uL BMP 04/29/25 06:19 Sodium 140 Potassium 3.9 Chloride 106 Carbon Dioxide 26 BUN 18 Creatinine 0.96 Glucose 120 H Calcium 8.[address] 04/26/25 08:03 CT SCAN OF THE RIGHT FOOT WITHOUT IV CONTRAST CLINICAL HISTORY: Left foot pain. Hardware infection. COMPARISON STUDY: Left foot x-rays dated 04/25/2025. MRI of the left foot dated 12/06/2021. TECHNIQUE: CT scan of the left foot was performed from the ankle to the base of the foot. Images are reviewed in the axial, sagittal, and coronal planes. IV contrast was not administered for this examination. 3-D reformats are created and assessed. A dose lowering technique was utilized adhering to the principles of ALARA. CT DOSE: 681.47 mGy.cm FINDINGS: The skeletal structures are osteopenic. No acute fracture is clearly seen. Advanced arthritic change with bony sclerosis and fragmentation is seen in the midfoot at the tarsometatarsal joints. There has been fusion at the first tarsometatarsal articulation with a buttress plate along the dorsal cortex. An additional oblique cortical screw transfixes the first metatarsophalangeal joint, extending through the cortex of the medial cuneiform and approximating the middle cuneiform and navicular. There is nonspecific lucency around the distal end of this screw. There are also fixation devices along the dorsal cortex of the second and third metatarsophalangeal joints. No erosive change is seen to suggest osteomyelitis. The ankle mortise is maintained. There is diffuse soft tissue edema throughout the foot, with subcutaneous fluid. This is greatest along the dorsal/lateral aspect of the forefoot. Question a 2.4 x 1.2 cm organized pocket of fluid along the dorsal aspect of the first metatarsal shaft seen on axial image #265. No soft tissue gas is seen throughout the foot. A plantar heel spur is observed. The Achilles tendon is intact as visualized. A small ulceration/wound is suggested along the dorsal aspect of the forefoot ov erlying the navicular. IMPRESSION: 1. No acute fracture is seen. 2. Postsurgical and severe degenerative change in the midfoot as above with bony fragmentation and sclerosis. This is likely on a postsurgical/degenerative basis. Superimposed infection would be impossible to exclude and clinical correlation will be essential. 3. There is lucency seen distally around a cortical screw which extends through the first metatarsophalangeal joint and approximating the medial cuneiform and anterior navicular. Hardware loosening is not excluded. 4. There is diffuse soft tissue edema and subcutaneous fluid throughout the foot, likely representing cellulitis. 5. Question a 2.4 x 1.2 cm organized pocket of fluid along the dorsal aspect of the foot overlying the first metatarsal shaft. An abscess at this site is not excluded. There is no soft tissue gas. 6. A small ulceration/wound is suggested along the dorsum of the foot. Correlate clinically. ACT 112: Negative or not required by law. Dictated: 04/26/2025 10:07 AM Transcribed: 04/26/2025 11:53 AM Hayley [id number] [email or web address] [id number] Electronically signed by: Hola Garner M.D. 04/26/2025 2:32 PM Medications Administered Current Inpatient Medications Acetaminophen (Acetaminophen 325 Mg Tab) 650 mg PO Q4H PRN PRN Reason: Pain or Fever Stop: 05/25/25 03:16 Last Admin: 04/29/25 11:25 Dose: 650 mg Albuterol (Albuterol Hfa 8 Gm Inhaler) 2 puffs INH QID PRN PRN Reason: cough/sob Stop: 05/25/25 03:16 Aspirin (Aspirin 81 Mg Ectab) 81 mg PO DAILY RADHA Stop: 05/25/25 08:59 Last Admin: 04/29/25 08:32 Dose: 81 mg Cyanocobalamin (Cyanocobalamin (B-12) 500 Mcg Tablet) 1,000 mcg PO QAM RADHA Stop: 05/25/25 08:59 Last Admin: 04/29/25 08:32 Dose: 1,000 mcg Famotidine (Famotidine 20 Mg Tab) 20 mg PO HS RADHA Stop: 05/25/25 20:59 Last Admin: 04/28/25 21:41 Dose: 20 mg Gabapentin (Gabapentin 300 Mg Cap) 300 mg PO TID RADHA Stop: 05/25/25 08:59 Last Admin: 04/29/25 08:32 Dose: 300 mg Hydromorphone HCl (Hydromorphone Inj 0.5 Mg/0.5 Ml Syr) 0.25 mg IV Q3H PRN PRN Reason: Mod-Sev Pain (Scale 4-10) Stop: 05/09/25 02:37 Last Admin: 04/27/25 11:58 Dose: 0.25 mg Cefazolin Sodium (Ancef 2000mg) 2,000 mg in 15 mls @ 2.5 mls/min IV Q8H RADHA Stop: 05/12/25 21:59 Last Admin: 04/29/25 05:19 Dose: 2.5 mls/min Ondansetron HCl (Ondansetron Inj 2 Mg/Ml 2 Ml Vial) 4 mg IV Q6H PRN PRN Reason: NAUSEA/VOMITING Stop: 05/25/25 03:16 Last Admin: 04/27/25 00:17 Dose: 4 mg Pantoprazole Sodium (Pantoprazole 40 Mg Tab) 40 mg PO QAM RADHA Stop: 05/25/25 08:59 Last Admin: 04/29/25 08:32 Dose: 40 mg Sertraline HCl (Sertraline Hcl 50 Mg Tablet) 50 mg PO DAILY RADHA Stop: 05/25/25 08:59 Last Admin: 04/29/25 08:32 Dose: 50 mg Trazodone HCl (Trazodone Hcl 50 Mg Tab) 50 mg PO HS RADHA Stop: 05/25/25 20:59 Last Admin: 04/28/25 21:41 Dose: 50 mg
[2025-04-29] MEDS ORDERED: Nursing to Pharmacy Communication SCH (17:15)
--- NOTE | 2025-04-29 18:40 | Hospitalist Progress Note ---
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 Presented with <1 week of left foot pain, swelling, redness, and an open wound. Patient had left foot surgery at [facility] about 3 years ago (//3rd toe arthrodesis). #staph aureus bacteremia - -previously on zosyn with daptomycin -no over to IV Ancef - day #2 of such -caution with Ancef as he reportedly had rocephin allergy several years ago? -source for MSSA bacteremia - left foot cellulitis/osteomyelitis as multiple wound cultures from the L foot have grown proteus with MSSA -echo without valvular vegetations -repeat blood cx's negative ensuring sterility -6-week course of IV abx planned - see below #left foot osteomyelitis with hardware infection - -POD #2 s/p left foot I & D along with removal of infected hardware along with bone biopsy of first metatarsal bone - by Dr Saeed Choi -path c/w acute OM -wound cultures from L foot -- proteus, MSSA -will Rx for acute OM with 6 week course of IV antibiotics -requested ID consultation -recs: -IV cefazolin 2 g IV q8h x 6 weeks (04/27 - 06/07/25) -weekly CBC with diff, CMP #Acute kidney injury - -peak Creatinine 1.43 -Cr now <1 -cont to hold losartan and Celebrex -but likely resume losartan tomorrow as BPs trending up #OA (??RA) - -celebrex remains on hold #HTN - -resume losartan tomorrow if creatinine is stable #GERD - -cont PPI -cont H2 anastasia #mental health - -cont sertraline #pre-DM - -a1c 6.4% c/w such -would benefit from metformin, GLP-1 receptor agonist -DM diet #MAXIMO - -asked his to bring home CPAP unit #Peripheral neuropathy - -Continue gabapentin 300mg TID #microcytic anemia - -check Fe studies in am -recheck cbc in am #acute metabolic encephalopathy - -per staff has had confusion -this is c/w delirium from his bacteremia, left foot infection, etc. -slurred speech - baseline? #DVT proph - -add heparin SC updated at bedside PICC line consent obtained from pt's who signed on pt's behalf dispo - rehab at SNF Admission and Anticipated Discharge Date Admission Date: April 25, 2025 Subjective patient worked with therapy today -- was very weak, and rehab advised social work made multiple referrals to various facilities patient reports fatigue & weakness along with left foot pain eating well pt's states he had a rash with rocephin several years ago? (had knee infection?) at bedside during the visit we discussed PICC line placement, risks/benefits discussed, consent form completed Review of Systems Review of Systems: gen - no fevers or chills cv - no cp pulm - no dyspnea GI - no diarrhea; last BM per nursing documentation - 04/28 Physical Exam Physical Exam: gen - lying comfortably in bed, NAD (speech slightly slurred?) neck - no JVD mouth - MMM heart - RRR, s1 s2, no murmur lungs - CTA b/l abd - soft NT ND BS+; protuberant, but not tympanic ext - left foot wrapped in BRYNO wrap dressing; right foot/ankle w/o edema; cap refill toes left foot brisk; pulses b/l feet 2+ Results & Data Results & Data Vital Signs (Past 12 Hours) Vital Signs Temp Pulse Resp BP Pulse Ox O2 Del Method O2 Flow Rate 04/29/25 15:16 36.7 C 80 16 135/72 95 Nasal Cannula 3 04/29/25 08:30 Nasal Cannula 3.5 04/29/25 07:28 37.2 C 90 16 169/71 H 96 Nasal Cannula 3.5 Laboratory Results Laboratory Results - last 24 hr 04/29/25 04/29/25 06:19 20:19 WBC 10.33 RBC 3.59 L Hgb 8.6 L Hct 27.7 L MCV 77.2 L MCH 24.0 L MCHC 31.0 L RDW Std Deviation 44.9 RDW Coeff of Veronica 16.0 H Plt Count 332 MPV 8.7 L Absolute Nucleated RBC 0.02 Nucleated RBC % (auto) 0.2 Sodium 140 Potassium 3.9 Chloride 106 Carbon Dioxide 26 Anion Gap 8 BUN 18 Creatinine 0.96 Est Cr Clr Drug Dosing 83.2 eGFR 84.51 BUN/Creatinine Ratio 18.8 Glucose 120 H POC Glucose 108 H Calcium 8.9 C-Reactive Protein 25.42 H Diagnostic Findings Microbiology 04/27/25 12:03 Blood Aerobic Blood Culture - Preliminary No growth in Aerobic bottle after 48 hours. 04/27/25 12:03 Blood Anaerobic Blood Culture - Preliminary No growth in Anaerobic bottle after 48 hours. 04/27/25 11:50 Blood Aerobic Blood Culture - Preliminary No growth in Aerobic bottle after 48 hours. 04/27/25 11:50 Blood Anaerobic Blood Culture - Preliminary No growth in Anaerobic bottle after 48 hours. 04/25/25 11:44 Foot,Left Gram Stain - Final 04/25/25 11:44 Foot,Left Aerobic and Anaerobic Culture - Preliminary Proteus mirabilis Staphylococcus aureus 04/25/25 00:27 Blood Aerobic Blood Culture - Final Staphylococcus aureus 04/25/25 00:27 Blood Anaerobic Blood Culture - Final Staphylococcus aureus 04/25/25 00:22 Foot,Left Gram Stain - Final 04/25/25 00:22 Foot,Left Wound Culture - Final Proteus mirabilis Staphylococcus aureus 04/25/25 01:10 Blood Aerobic Blood Culture - Preliminary No growth in Aerobic bottle after 48 hours. 04/25/25 01:10 Blood Anaerobic Blood Culture - Preliminary No growth in Anaerobic bottle after 48 hours. 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
[2025-04-30] MEDS ORDERED: HYDROCODONE/ACETAMINOPHEN 7.5/325MG TAB PO PRN (05:37)
[2025-04-30] MEDS: HEPARIN SOD 5,000 UNIT/0.5 ML VIAL SQ SCH (06:35)
[2025-04-30 06:51] LABS: Hematocrit (blood only) 28.1 % (42.0-52.0); Hemoglobin 8.7 g/dL (14.0-18.0); Mean Corpuscular Hemoglobin 24.1 pg (25.0-34.0); Mean Corpuscular Volume 77.8 fL (80.0-100.0); Platelet Count 364 K/uL (130-400); RDW Standard Deviation 45.8 fL (36.4-46.3); Red Blood Count 3.61 M/uL (4.70-6.10); White Blood Count 9.96 K/ul (4.8-10.8)
[2025-04-30 07:23] LABS: Anion Gap 7.0 (3-11); Blood Urea Nitrogen 13.0 mg/dl (6-23); Calcium 8.9 mg/dl (8.6-10.3); Carbon Dioxide 31.0 mmol/L (21-32); Chloride 104.0 mmol/L (98-107); Creatinine Clr Calc Pharmacy 101.1 ml/min; Glucose 115.0 mg/dl (70-99(Fasting)); Iron 10.0 mcg/dl (35-175); Potassium 3.8 mmol/L (3.5-5.1); Sodium 142.0 mmol/L (136-145); Total Iron Binding Cap Calc 298.0 mcg/dl (250-450); Transferrin 213.0 mg/dl (200-360); Transferrin (FE) Percent Satur 3.0 % (20-50)
[2025-04-30 07:44] LABS: Ferritin 82.4 ng/ml (8-388)
--- NOTE | 2025-04-30 09:24 | Hospitalist Progress Note ---
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 Presented with <1 week of left foot pain, swelling, redness, and an open wound. Patient had left foot surgery at [facility] about 3 years ago (// toe arthrodesis). #staph aureus bacteremia - -previously on zosyn with daptomycin. now on IV Ancef -source for MSSA bacteremia - left foot cellulitis/osteomyelitis as multiple wound cultures from the L foot have grown proteus with MSSA -echo without valvular vegetations -repeat blood cx's negative ensuring sterility -6-week course of IV abx planned - see below -PICC line placed 04/30 #left foot osteomyelitis with hardware infection - -POD #2 s/p left foot I & D along with removal of infected hardware along with bone biopsy of first metatarsal bone - by Dr Saeed Choi -path c/w acute OM -wound cultures from L foot -- proteus, MSSA -will Rx for acute OM with 6 week course of IV antibiotics -ID consultation recommends IV cefazolin 2 g IV q8h x 6 weeks (04/27 - 06/07/25) and weekly CBC with diff, CMP #Acute kidney injury - -peak Creatinine 1.43 -Cr now <1 -cont to hold Celebrex -losartan now resumed #OA (??RA) - -celebrex remains on hold #HTN - -Losartan now resumed #GERD - -cont PPI -cont H2 anastasia #mental health - -cont sertraline #pre-DM - -a1c 6.4% c/w such -would benefit from metformin, GLP-1 receptor agonist -DM diet #MAXIMO - -CPAP HS #Peripheral neuropathy - -Continue gabapentin 300mg TID #microcytic anemia - - Iron panel most consistent with iron deficiency anemia with low iron and transferrin % sat. Ferritin level is normal but in the presence of acute inflammation this is likely an acute phase reactant and normal despite depleted iron stores - Started ferrous sulfate 325 mg daily #acute metabolic encephalopathy - -per staff has had confusion -this is c/w delirium from his bacteremia, left foot infection, etc. -slurred speech - baseline? #DVT proph - -add heparin SC VTE PPX: SCDs dispo - rehab at SNF Started iron supplementation Ordered CPAP HS Admission and Anticipated Discharge Date Admission Date: April 25, 2025 Supervising Physician Co-Signing Physician Notes Attending Attestation: Chart reviewed, care plan d/w PA Daphne Valentin. I agree w/ the zamarripa components of her documentation. Kamlesh Xavier MD Subjective Patient seen and evaluated at bedside. He just had his PICC line placed by the IV team. He reports feeling okay overall. He had a bowel movement earlier. He reports at its worst the pain in his left foot is a 4/10, but notes that this is not a constant pain. He states he has a strong appetite. He has been sleeping poorly overnight. He reports difficulty falling asleep and staying asleep. He uses CPAP overnight at home but has not been using it during this hospitalization. I informed him that the respiratory therapy team can provide him with a CPAP while in the hospital so we will try this tonight and see if he has improved sleep. Continuing to wait for rehab placement. No additional complaints or concerns at this time. Physical Exam Physical Exam: General: No acute distress, nondiaphoretic, well-developed, well-nourished. Skin: Warm, dry. No rashes or peripheral edema noted. Extremities: Left foot in Ryan wrap dressing. Able to wiggle left toes. Sensory function intact. Cardiac: Regular rate and rhythm without murmurs gallops or rubs. Pulm: Clear to auscultation bilaterally without wheezes, rales or rhonchi. Normal respiratory effort. 94% on 3 L NC. Abdominal: Soft, nontender, distended secondary to body habitus. Bowel sounds present. Neuro: A&O x3. No focal neurological deficits. Results & Data Results & Data Vital Signs (Past 12 Hours) Vital Signs Temp Pulse Pulse Resp BP Pulse Ox O2 Del Method 04/30/25 08:00 98.1 F 72 16 94 Nasal Cannula 04/29/25 22:06 98.6 F 79 18 160/72 H 97 Nasal Cannula O2 Flow Rate 04/30/25 08:00 2 04/29/25 22:06 3 Laboratory Results Reviewed CBC, BMP, iron panel, wound culture, blood cultures PG Care Time/CCT Total # of Minutes Spent Total Time Spent with Patient: Total time spent is greater than 50% in coordination of care (as documented) at patient's floor/unit and/or counseling patient: Coding Level of Care Code 76432 SUB INP/OBS CARE 3/50MIN Diagnoses Bacteremia R78.81 Foot osteomyelitis, left M86.9 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
[2025-04-30] MEDS: FERROUS SULFATE 325 MG TAB PO SCH (10:53)
--- NOTE | 2025-04-30 21:56 | Podiatry Progress Note ---
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 - Surgical dressing left intact today POD#3. I changed this yesterday, but did not notate it in [facility]. - Surgical pathology confirms expected OM - Discussed this surgical intervention was the short term fix, with 6-8 weeks IV antibiotics likely required for better source control, - Could revisit revisional arthrodesis in several months after the infection is provably cleared via bone biopsy. - Good for d/c to SNF with IV antibiotics per ID, with PICC line already placed. - Will have [facility] ([facility] transport to our office in 2 weeks or so for suture removal Admission and Anticipated Discharge Date Admission Date: April 25, 2025 Subjective Patient seen at bedside this evening. No new complaints. Still has pain to the foot, but improving. Has had PICC line placed. Has been tolerating surgical shoe. Denies worsening symptoms of infection. Review of Systems Constitutional: + fever; no chills and no fatigue Eyes: no problem reported Ear, Nose, Mouth, Throat: no problem reported Respiratory: no problem reported Cardiovascular: + edema; no problem reported Gastrointestinal: no nausea, no vomiting and no problem reported Musculoskeletal: no problem reported Integumentary: + skin ulcer, + wounds and + erythema Neurologic: + loss of sensation, + numbness and + pa resthesia; no generalized weakness Psychiatric: no problem reported Physical Exam Physical Exam: Dressing changed yesterday uneventfully. Pain on ROM and palpation of surgical site. No new ascending cellulitis. Constitutional: WD/WN, vitals as above + acute distress, + ill appearing and + obese Eyes: PERRL, conjunctivae normal, anicteric sclerae ENMT: external ear and nose normal, oropharynx normal Neck: trachea midline, no thyromegaly normal visual inspection Respiratory: normal respiratory effort; no respiratory distress Cardiovascular: Rate/Rhythm: regular rate and regular rhythm Vessels: posterior tibial pulses present and dorsalis pedis pulses present Extremities: normal capillary refill, + pedal edema and + edema; no calf ten derness Chest (Breasts): Chest: normal inspection of chest Gastrointestinal (Abdomen): Inspection/Auscultation: abdomen normal to inspection Percussion/Palpation: + abdomen tender and abdomen soft Musculoskeletal: no cyanosis or clubbing, extremities motor strength 5/5 Head/Neck/Chest: normocephalic and head atraumatic Extremities: extremities normal to inspection Ankle: + skin erythema and + limited ROM of ankle Skin: + ulcer and + erythema Neurologic: normal touch/pain/proprioception and awake; no focal motor deficits Psychiatric: A+Ox3, euthymic affect Results & Data Results & Data Vital Signs (Past 12 Hours) Vital Signs Temp Pulse Resp BP Pulse Ox O2 Del Method O2 Flow Rate 04/30/25 20:46 38.3 C H 87 16 162/78 H 92 Room Air 04/30/25 12:53 Nasal Cannula 3 (2) 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
[2025-05-01] MEDS: MELATONIN 3 MG TAB PO PRN (00:32)
[2025-05-01 06:58] LABS: Hematocrit (blood only) 32.1 % (42.0-52.0); Hemoglobin 9.6 g/dL (14.0-18.0); Mean Corpuscular Hemoglobin 23.6 pg (25.0-34.0); Mean Corpuscular Volume 78.9 fL (80.0-100.0); Platelet Count 450 K/uL (130-400); RDW Standard Deviation 46.4 fL (36.4-46.3); Red Blood Count 4.07 M/uL (4.70-6.10); White Blood Count 11.88 K/ul (4.8-10.8)
[2025-05-01 07:19] LABS: Anion Gap 11.0 (3-11); Calcium 9.0 mg/dl (8.6-10.3); Carbon Dioxide 25.0 mmol/L (21-32); Chloride 103.0 mmol/L (98-107); Potassium 3.7 mmol/L (3.5-5.1); Sodium 139.0 mmol/L (136-145)
[2025-05-01 07:25] LABS: Blood Urea Nitrogen 16.0 mg/dl (6-23); Creatinine Clr Calc Pharmacy 96.3 ml/min; Glucose 132.0 mg/dl (70-99(Fasting))
[2025-05-01] MEDS: LOSARTAN POTASSIUM 50 MG TAB PO SCH (08:30)
--- NOTE | 2025-05-01 09:34 | Hospitalist Progress Note ---
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 Presented with <1 week of left foot pain, swelling, redness, and an open wound. Patient had left foot surgery at [facility] about 3 years ago (// toe arthrodesis). #Staph aureus bacteremia - source for MSSA bacteremia is left foot cellulitis /osteomyelitis as multiple wound cultures from the L foot have grown proteus with MSSA - Initially treated with Zosyn and Daptomycin, now on IV Ancef. PICC line placed 04/30 - Echo without valvular vegetations - Repeat blood cx's 04/27 negative ensuring sterility - Patient became febrile at 100.8 F overnight 04/30 with new leukocytosis and thrombocytosis on AM labs - repeat blood cultures obtained 05/01. UA checked and negative, no GI or respiratory symptoms - Discussed with podiatry who reports his left foot was very significantly infected and antibiotic should continue to be effective with time. If leukocytosis worsens, there is a chance he could need repeat surgery sooner than later - 6-week course of IV abx planned - see below - Trend CBC with differential #left foot osteomyelitis with hardware infection - - S/p left foot I & D, removal of infected hardware, and bone biopsy of first metatarsal bone on 04/[address] Saeed Choi - Path c/w acute OM - Wound cultures from L foot - proteus, MSSA - will treat for acute OM with 6 week course of IV antibiotics - ID consultation recommends IV cefazolin 2 g IV q8h x 6 weeks (04/27 - 06/07/25) and weekly CBC with diff, CMP - Updated ID on patient becoming febrile and uptrending leukocytosis and thrombocytosis 05/01 - no change in antibiotic regimen at this time #Acute kidney injury - - peak Creatinine 1.43 - Cr now <1 - cont to hold Celebrex - losartan now resumed #OA (??RA) - - celebrex remains on hold #HTN - - Losartan now resumed #GERD - - cont PPI - cont H2 anastasia #mental health - - cont sertraline #pre-DM - - a1c 6.4% c/w such - would benefit from metformin, GLP-1 receptor agonist - DM diet #MAXIMO - - CPAP HS but patient has refused #Peripheral neuropathy - - Continue gabapentin 300mg TID #microcytic anemia - - Iron panel most consistent with iron deficiency anemia with low iron and transferrin % sat. Ferritin level is normal but in the presence of acute inflammation this is likely an acute phase reactant and normal despite depleted iron stores - Started ferrous sulfate 325 mg daily #acute metabolic encephalopathy - - per staff has had confusion - this is c/w delirium from his bacteremia, left foot infection, etc. VTE PPX: SCDs, heparin Dispo: continued inpatient stay with new fever, leukocytosis, and thrombocytosis for further monitoring. Has been accepted for SNF at [facility] Discussed case with ID and podiatry Repeated blood cultures Ordered UA Admission and Anticipated Discharge Date Admission Date: April 25, 2025 Supervising Physician Co-Signing Physician Notes Attending Attestation: Chart reviewed, care plan d/w KRISTEN Valentin. I agree w/ the zamarripa components of her documentation. Fever/leukocytosis - if these persist consider re-imaging of foot. Cont IV Ancef. Follow repeat blood cx's. Kamlesh Xavier MD Subjective Patient seen and evaluated in bedside chair. We discussed that the initial plan was to discharge him to rehab today, however he became febrile overnight and has a new leukocytosis and thrombocytosis on morning labs. He reports "it is because my room is too hot. If it is not too hot, then it is too cold." He requested another hospital room, I informed him that this is out of my control but I would let the equal employment opportunity officer know. He continues to have discomfort in his left foot but denies an increase in pain compared to yesterday. He worked with therapy earlier and did ok - he is hasty and requires redirection per report from RN and therapist. RN reports he refused his CPAP overnight and has been refusing the nasal cannula today. He denies cough, shortness of breath, congestion, headache, nausea, abdominal pain, diarrhea, chest pain. We discussed remaining inpatient to trend his CBC and monitor for further fevers. He is agreeable to this plan. No additional complaints or concerns at this time. Review of Systems Review of Systems: All systems reviewed & are unremarkable except as noted in Subjective Physical Exam Physical Exam: General: No acute distress, nondiaphoretic, well-developed, well-nourished. Skin: Warm, dry. No rashes noted. Nonpitting peripheral edema noted L>R. Extremities: Left foot in Ryan wrap dressing and postop shoe. Able to wiggle left toes. Sensory function intact. Cardiac: Regular rate and rhythm without murmurs gallops or rubs. Pulm: Clear to auscultation bilaterally without wheezes, rales or rhonchi. Normal respiratory effort. 94% on room air. Abdominal: Soft, nontender, distended secondary to body habitus. Bowel sounds present. Neuro: A&O x3. No focal neurological deficits. Results & Data Results & Data Vital Signs (Past 12 Hours) Vital Signs Temp Pulse Pulse Resp BP Pulse Ox O2 Del Method 05/01/25 08:00 98.4 F 89 16 162/78 H 91 Room Air 05/01/25 07:30 Nasal Cannula 05/01/25 07:26 99.0 F 91 H 16 168/84 H 91 Room Air 04/30/25 22:22 Nasal Cannula O2 Flow Rate 05/01/25 08:00 05/01/25 07:30 3 05/01/25 07:26 04/30/25 22:22 3 Laboratory Results Reviewed CBC, BMP, blood cultures PG Care Time/CCT Total # of Minutes Spent Total Time Spent with Patient: Total time spent is greater than 50% in coordination of care (as documented) at patient's floor/unit and/or counseling patient: Coding Level of Care Code 55863 SUB INP/OBS CARE 3/50MIN Diagnoses Bacteremia R78.81 Foot osteomyelitis, left M86.9 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
[2025-05-01 10:20] LABS: Appearance Urine Clear (Clear); Bacteria Urine Automated None Seen (None Seen); Cast Urine Automated 0-2 /lpf (0-2); Epithelial Cell Urine Auto 0-2 /hpf (0-2); Glucose Urine UA Negative (Negative); WBC Urine Automated 0-5 /hpf (0-5)
[2025-05-02 06:59] LABS: Hematocrit (blood only) 30.6 % (42.0-52.0); Hemoglobin 9.6 g/dL (14.0-18.0); Immature Granulocytes # (auto) 0.13 K/uL (0.01-0.20); Immature Granulocytes % (auto) 1.0 %; Mean Corpuscular Hemoglobin 23.8 pg (25.0-34.0); Mean Corpuscular Volume 75.7 fL (80.0-100.0); Platelet Count 449 K/uL (130-400); RDW Standard Deviation 44.7 fL (36.4-46.3); Red Blood Count 4.04 M/uL (4.70-6.10); White Blood Count 12.57 K/ul (4.8-10.8)
[2025-05-02 07:31] LABS: Anion Gap 10.0 (3-11); Blood Urea Nitrogen 16.0 mg/dl (6-23); Calcium 8.7 mg/dl (8.6-10.3); Carbon Dioxide 27.0 mmol/L (21-32); Chloride 100.0 mmol/L (98-107); Creatinine Clr Calc Pharmacy 96.3 ml/min; Glucose 152.0 mg/dl (70-99(Fasting)); Potassium 3.5 mmol/L (3.5-5.1); Sodium 137.0 mmol/L (136-145)
--- NOTE | 2025-05-02 13:23 | Hospitalist Progress Note ---
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 Presented with <1 week of left foot pain, swelling, redness, and an open wound. Patient had left foot surgery at [facility] about 3 years ago (// toe arthrodesis). #Staph aureus bacteremia - source for MSSA bacteremia is left foot cellulitis/osteomyelitis as multiple wound cultures from the L foot have grown proteus with MSSA - Initially treated with Zosyn and Daptomycin, now on IV Ancef. PICC line placed 04/30 - Echo without valvular vegetations - Repeat blood cx's 04/27 negative ensuring sterility - Patient became febrile at 100.8 F overnight 04/30 with new leukocytosis and thrombocytosis on AM labs 05/01 - repeat blood cultures obtained and negative x 24 hours. UA checked and negative, no GI or respiratory symptoms - Discussed with podiatry who reports his left foot was very significantly infected and antibiotic should continue to be effective with time. If leukocytosis worsens, there is a chance he could need repeat surgery sooner than later - 6-week course of IV abx planned - see below - Trend CBC with differential #left foot osteomyelitis with hardware infection - - S/p left foot I & D, removal of infected hardware, and bone biopsy of first metatarsal bone on 04/[address] Saeed Choi. Path c/w acute OM. Wound cultures from L foot - proteus, MSSA - Leukocytosis and thrombocytosis remains unchanged today, fortunately afebrile x 24 hours now. Undressed left foot 05/02 and his incision site is without current drainage or signs of progressive infection - Will treat for acute OM with 6 week course of IV antibiotics - ID consultation recommends IV cefazolin 2 g IV q8h x 6 weeks (04/27 - 06/07/25) and weekly CBC with diff, CMP - Updated ID on patient becoming febrile and uptrending leukocytosis and thrombocytosis 05/01 - no change in antibiotic regimen at this time #Acute kidney injury - - peak Creatinine 1.43 - Cr now <1 - cont to hold Celebrex - losartan now resumed #OA (??RA) - - celebrex remains on hold #HTN - - Losartan now resumed #GERD - - cont PPI - cont H2 anastasia #mental health - - cont sertraline #pre-DM - - a1c 6.4% c/w such - would benefit from metformin, GLP-1 receptor agonist - DM diet #MAXIMO - - CPAP HS but can be noncompliant with this at times #Peripheral neuropathy - - Continue gabapentin 300mg TID #microcytic anemia - - Iron panel most consistent with iron deficiency anemia with low iron and transferrin % sat. Ferritin level is normal but in the presence of acute inflammation this is likely an acute phase reactant and normal despite depleted iron stores - Started ferrous sulfate 325 mg daily #acute metabolic encephalopathy - - per staff has had confusion - this is c/w delirium from his bacteremia, left foot infection, etc. VTE PPX: SCDs, heparin Dispo: continued inpatient stay to monitor for fever and trend leukocytosis and thrombocytosis. Has been accepted for SNF at [facility]. If he remains stable overnight, could potentially discharge to [facility] tomorrow 05/03. Admission and Anticipated Discharge Date Admission Date: April 25, 2025 Supervising Physician Co-Signing Physician Notes Attending Attestation: Chart reviewed, care plan d/w KRISTEN Valentin. I agree w/ the zamarripa components of her documentation. Photos of left foot reviewed. Cont IV ancef. Repeat blood cx's remain negative. Kamlesh Xavier MD Subjective Patient seen and evaluated in bedside chair. He expresses the desire to be discharged home today. We discussed that his CBC this morning still revealed an elevated white count and platelet count, so we want to ensure his infection is not worsening and requiring repeat surgical intervention prior to discharge. He is understanding. We discussed that pending his lab results tomorrow morning and if he remains afebrile, he could potentially be discharged to [facility] tomorrow. He denies any change in his left foot pain or chills. No additional complaints or concerns at this elvira. Physical Exam 2 Physical Exam: General: No acute distress, nondiaphoretic, well-developed, well-nourished. Skin: Warm, dry. No rashes noted. Nonpitting peripheral edema noted L>R. Extremities: Left foot in Ryan wrap dressing and postop shoe - undressed for assessment. Left foot with dorsal medial incision - sutures intact, no current drainage. 2+ pitting pedal edema. Neurovascularly intact. Cardiac: Regular rate and rhythm without murmurs gallops or rubs. Pulm: Clear to auscultation bilaterally without wheezes, rales or rhonchi. Normal respiratory effort. 91% on room air. Abdominal: Soft, nontender, distended secondary to body habitus. Bowel sounds present. Neuro: A&O x3. No focal neurological deficits. 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
[2025-05-02 22:53] VITALS: RESP 20
[2025-05-03] MEDS ORDERED: ceFAZolin 330 MG/ML 1 GM VIAL IV SCH
[2025-05-03 06:32] LABS: Hematocrit (blood only) 27.6 % (42.0-52.0); Hemoglobin 8.4 g/dL (14.0-18.0); Immature Granulocytes # (auto) 0.11 K/uL (0.01-0.20); Immature Granulocytes % (auto) 1.3 %; Mean Corpuscular Hemoglobin 23.6 pg (25.0-34.0); Mean Corpuscular Volume 77.5 fL (80.0-100.0); Platelet Count 421 K/uL (130-400); RDW Standard Deviation 46.9 fL (36.4-46.3); Red Blood Count 3.56 M/uL (4.70-6.10); White Blood Count 8.41 K/ul (4.8-10.8)
[2025-05-03 06:55] LABS: Anion Gap 7.0 (3-11); Blood Urea Nitrogen 14.0 mg/dl (6-23); Calcium 8.4 mg/dl (8.6-10.3); Carbon Dioxide 29.0 mmol/L (21-32); Chloride 103.0 mmol/L (98-107); Creatinine Clr Calc Pharmacy 96.3 ml/min; Glucose 115.0 mg/dl (70-99(Fasting)); Potassium 3.6 mmol/L (3.5-5.1); Sodium 139.0 mmol/L (136-145)
[2025-05-03 08:11] VITALS: BP 163/68; PULSE 89; TEMP 98.6; O2SAT 96
[2025-05-03] MEDS ORDERED: Nursing to Pharmacy Communication SCH (12:00)
--- NOTE | 2025-05-03 13:31 | Discharge Summary ---
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 Presented with <1 week of left foot pain, swelling, redness, and an open wound. Patient had left foot surgery at [facility] about 3 years ago (//3rd toe arthrodesis). #Staph aureus bacteremia - source for MSSA bacteremia is left foot cellulitis/osteomyelitis as multiple wound cultures from the L foot have grown proteus with MSSA - Initially treated with Zosyn and Daptomycin, now on IV Ancef. PICC line placed 04/30 - Echo without valvular vegetations - Repeat blood cx's 04/27 negative ensuring sterility - Patient became febrile at 100.8 F overnight 04/30 with new leukocytosis and thrombocytosis on AM labs 05/01 - repeat blood cultures obtained and negative x 48 hours. UA checked and negative, no GI or respiratory symptoms - Discussed with podiatry who reports his left foot was very significantly infected and antibiotic should continue to be effective with time - Leukocytosis resolved 05/03. Last documented fever on 05/01. Thrombocytosis remains but improving - 6-week course of IV abx planned - see below #left foot osteomyelitis with hardware infection - - S/p left foot I & D, removal of infected hardware, and bone biopsy of first metatarsal bone on 04/[address] Saeed Choi. Path c/w acute OM. Wound cultures from L foot - proteus, MSSA - Leukocytosis and thrombocytosis remains unchanged today, fortunately afebrile x 48 hours now. Undressed left foot 05/02 and his incision site is without current drainage or signs of progressive infection - Will treat for acute OM with 6 week course of IV antibiotics - ID consultation recommends IV cefazolin 2 g IV q8h x 6 weeks (04/27 - 06/07/25) and weekly CBC with diff, CMP - Updated ID on patient becoming febrile and uptrending leukocytosis and thrombocytosis 05/01 - no change in antibiotic regimen #Acute kidney injury - - peak Creatinine 1.43 - Cr now <1 #OA (??RA) - - Continue celebrex #HTN - - Continue Losartan #GERD - - cont PPI - cont H2 anastasia #mental health - - cont sertraline #pre-DM - - a1c 6.4% c/w such - would benefit from metformin, GLP-1 receptor agonist - defer to outpatient provider - DM diet #MAXIMO - - CPAP HS but can be noncompliant with this at times #Peripheral neuropathy - - Continue gabapentin 300mg TID #microcytic anemia - - Iron panel most consistent with iron deficiency anemia with low iron and transferrin % sat. Ferritin level is normal but in the presence of acute inflammation this is likely an acute phase reactant and normal despite depleted iron stores - Started ferrous sulfate 325 mg daily #acute metabolic encephalopathy - - per staff has had confusion intermittently - this is c/w delirium from his bacteremia, left foot infection, etc. #fall - patient sustained a ground level fall overnight 05/03 when he got out of bed to use the restroom without assistance. No head strike or loss of consciousness. VSS. Labs stable. No injuries sustained VTE PPX: SCDs, heparin Dispo: discharged to [facility] on 05/03 Notes For Next Care Provider Recommend weekly CBC with differential and CMP while on IV antibiotics. Medication Changes From Visit Continue Cefazolin 2 g IV Q8H through 06/07 Started ferrous sulfate 325 mg daily Tylenol as needed for basic pain Oxycodone 5 mg every 8 6 hours as needed for severe pain Admission HPI Per Admitting Provider The patient is a 69-year-old male with a past medical history including rheumatoid arthritis, balance disorder, MAXIMO, hypertension, anemia, asthma, B12 deficiency, GERD, hypertension, and anxiety/insomnia. He reports that earlier in the week he started develop some redness, and painful swelling of his left foot, and later on in the week developed an open area that is draining. The pain has been getting progressively worse, and he presents to the ED this evening for assessment. X-ray of left foot does not suggest osteomyelitis, but does show hardware for 2nd and 3rd toes, which he notes surgery performed at [facility] in [place] about 3 years ago. WBC is 18.20, glucose 168, creatinine 1.43, magnesium 1.9, CRP 28.28. Patient was given Zosyn 4.5 g IV and was started on vancomycin IV by the emergency department. Vancomycin was discontinued due to labs showing acute kidney injury. Patient was referred for admission to the [facility]. Venous Dopplers have been ordered and are pending at this time. Discharge Exam General: No acute distress, nondiaphoretic, well-developed, well-nourished. Skin: Warm, dry. No rashes noted. Nonpitting peripheral edema noted L>R. Extremities: Left foot in Ryan wrap dressing and postop shoe. Neurovascularly intact. Photos below from 05/02. Cardiac: Regular rate and rhythm without murmurs gallops or rubs. Pulm: Clear to auscultation bilaterally without wheezes, rales or rhonchi. Normal respiratory effort. 96% on room air. Abdominal: Soft, nontender, distended secondary to body habitus. Bowel sounds present. Neuro: A&O x3. No focal neurological deficits. Discharge Plan Discharge Items Patient Disposition: Transfer Long-Term Fac Reason For Visit: L FOOT CELLULITIS, YISEL Discharge Diagnosis: Left foot osteomyelitis with hardware infection, MSSA bacteremia Condition on Discharge: Good Activity: Per Instructions section Non-emergency contact: Primary Care Provider and Surgeon Call non-emergency contact if: you have any medication questions, your symptoms worsen, your pain is not controlled and you have a fever Follow-up/Referrals: Mary Bay MD [Primary Care Provider] - (Follow-up in 1-2 weeks) Diet: Carb Consistent or DM2 Addtl Attending Provider Instructions: Michael, You were admitted to the hospital with osteomyelitis of your left foot and MSSA bacteremia. Osteomyelitis is an infection of the bone and bacteremia is an infection of the bloodstream. You were evaluated by Dr. Choi from podiatry and had surgery on 04/27 to remove the infected hardware. You were also evaluated by the infectious disease doctor who coordinated your antibiotic regimen. You had a PICC line placed for ongoing IV antibiotics. You are being discharged to [facility] for rehab. Upon discharge from the hospital: * Continue cefazolin 2 g IV every 8 hours through 06/07. This is to complete your antibiotic treatment for your left foot osteomyelitis and MSSA bacteremia. * You were started on ferrous sulfate 325 mg daily. This is an oral iron supplement as your iron panel showed iron deficiency anemia. Side effects of oral iron supplementation include constipation, so I recommend monitoring for constipation and using an [id number] bowel regimen as needed. * You can take Tylenol as needed for basic pain or fever. * You can take oxycodone 5 mg every 6 hours as needed for severe pain. Do not drive or operate heavy machinery while taking oxycodone as it is a narcotic pain medication. * Take aspirin 81 mg twice daily. This serves as DVT prophylaxis to prevent a blood clot from forming. * You will have labs (CBC with differential, CMP) checked weekly with your ongoing IV antibiotics. * Follow-up with Dr. Choi from podiatry as directed. * Follow-up with infectious disease outpatient as directed. * Follow-up with your PCP in 1-2 weeks. Please return to the hospital if you experience any of the following: worsening drainage from your incision site, fever of 100.5 F or higher, chest pain, difficulty breathing, inability to tolerate oral intake, new or worsening confusion, passing out, or any other symptoms concerning for you. It was a pleasure taking care of you while you were in the hospital! Addtl Lens Gauger Provider Instructions: FROM ID: ID Outpatient Discharge summary, Discharging Physician please order the following on discharge: Diagnosis: L foot osteomyelitis, MSSA bacteremia Organism: Proteus mirabilis, MSSA Antibiotic: (dose and frequency): cefazolin 2 g IV q8h Start of therapy: 04/27/25 End of therapy: 06/07/25 Labs should be faxedto:[facility] [phone] Labs needed and frequency: CBC with diff, CMP weekly The Infectious Disease (ID) clinic will contact the patient to schedule a follow-up appointment. If you have not heard from the clinic within one week of discharge, please call the ID clinic at [phone] ask for [facility]. Clinic Address [address] [address] Office (P) [phone] Appointment-time frame:~5 weeks Pending Studies at Discharge: Yes (repeat blood cultures) Stand-Alone Forms: My [employer] Skilled Items Patient informed of condition?: Yes DNR: No Discharge Level of Care: Skilled Communicable Disease: No Discharge Prognosis: Stable Lines: PICC Urinary Catheter: No Medications and DC Order Prescriptions: New ferrous sulfate 325 mg (65 mg iron) Tablet,Delayed Release (Dr/Ec) 325 mg PO QAM Qty: 30 0RF cefazolin 2 gram recon soln 2 g IV Q8H Rx Instructions: Cefazolin 2 g IV Q8H through 06/07/25 for acute osteomyelitis and MSSA bacteremia. acetaminophen 325 mg Tablet 650 mg PO Q4H PRN (Reason: fever or pain) Qty: 90 0RF oxycodone 5 mg tablet 5 mg PO Q6H PRN (Reason: pain, severe) Qty: 14 0RF Continued esomeprazole magnesium [Nexium] 40 mg capsule,delayed release(DR/EC) 40 mg PO QAM Qty: 90 1RF trazodone 50 mg tablet 50 mg PO HS Qty: 90 1RF famotidine [Pepcid] 20 mg tablet 20 mg PO HS Qty: 90 1RF celecoxib 200 mg capsule 200 mg PO BID Qty: 60 4RF gabapentin 300 mg capsule 300 mg PO TID Qty: 90 2RF losartan 50 mg tablet 50 mg PO DAILY Qty: 30 2RF sertraline 50 mg tablet 50 mg PO DAILY Qty: 90 3RF cyanocobalamin (vitamin B-12) [Vitamin B-12] 1,000 mcg Tablet 1,000 mcg PO QAM albuterol sulfate 90 mcg/actuation HFA aerosol inhaler 1 - 2 puff INHALATION .EVERY 4-6HR PRN (Reason: cough/sob) Changed aspirin 81 mg tablet,chewable 81 mg PO BID Qty: 0 0RF Discontinued potassium chloride 20 mEq Tablet Extended Release 20 meq PO DAILY Discharge Orders: Discharge Order (Routine); Ordered 05/03/25 Ordered By: Daphne Mccoy/Other Patient Handouts: Prediabetes, 5 Steps for Eating Healthier Admission Data Admit Date/Time: 04/25/25 02:23 Attending Provider: Kamlesh Xavier Admit Provider: Shailesh Dillon Primary Care Provider: Mary [facility] Other Providers: Shailesh Dillon; Saeed Choi; [facility] Other Interventions: Discharge Summary Assessment (RN) Last Done: 05/03/25 12:56 Hospital Stay Data Consultations 04/25/25 02:11 ED Decision to Admit Stat 04/25/25 03:25 Consult Podiatry Routine 04/29/25 09:23 Consult Infectious Diseases Routine Procedures Performed Operation Date: 04/27/25 07:00 Actual Procedures p Left Foot Incision and Drainage(Left) - Saeed Choi DPM s Removal Hardware(Left) - Saeed Choi DPM Diagnostic Imagining Performed Foot X-Ray 04/25/25 00:14 EXAM: XR foot LT min 3V routine CLINICAL HISTORY: infx, ? OM TECHNIQUE: Radiograph of left foot was acquired. COMPARISON: CR, 11/22/2021 12:56:27 [employer]N FINDINGS: Interval placement of surgical plates/screws with arthrodesis of 1st,2nd and 3rd tarso-metatarsal joints. Reduced intertarsal joint spaces with multiple areas of subchondral erosions/sclerosis. There is no evidence of acute fracture, dislocation or osseous lesion. The sesamoid complex is well approximated. Tarsal bones are well aligned. The soft tissues are unremarkable. IMPRESSION: 1. Interval placement of surgical plates/screws with arthrodesis of 1st,2nd and 3rd tarso-metatarsal joints. 2. Reduced intertarsal joint spaces with multiple areas of subchondral erosions/sclerosis- Degenerative vs inflammatory arthritis- Stable. 3. Interval increase in adjacent soft tissue thickening at the level of 1st to 3rd tarso-metatarsal joints. Electronically signed by Gerson Lee 04-25-2025 02:00 AM Venous Doppler Study 04/25/25 00:14 EXAM: US venous doppler LE LT CLINICAL HISTORY: ? DVT TECHNIQUE: Ultrasound examination of left lower extremity veins was performed in real time and duplex. One or more of the following were performed- spectral analysis, resistive index, waveform analysis, and pulsed Doppler. COMPARISON: None. FINDINGS: Normal phasic, non-pulsatile and spontaneous flow is noted in visualized left greater saphenous, left common femoral, superficial femoral , profunda femoris, popliteal, anterior tibial, posterior tibial and peroneal veins. Visualized veins of left lower extremity demonstrate normal compressibility. No sonographic evidence of acute deep vein thrombosis (DVT) is detected in the visualized veins of lower extremity. Compression and Augmentation: All evaluated veins compress fully with applied transducer pressure. Augmentation of venous flow is noted with distal compression. Additional Findings: No evidence of intraluminal thrombus. Multiple lymph nodes are identified in the left inguinal region, one of them measures 0.97 cm Mild soft tissue edema seen in left lower extremity IMPRESSION: 1. No sonographic evidence of acute DVT detected at the time of examination. 2. Multiple left inguinal lymph nodes 3. Mild soft tissue edema and left lower extremity Disclaimer: DVT could be missed early in the disease when clot burden is minimal. For patients with moderate and high pretest probability of DVT and negative ultrasound, the [employer] [employer] clinical guidelines recommend testing with a D-dimer assay or repeat ultrasound in 5-7 days. If symptoms worsen, the Society of radiologists in ultrasound recommends repeating ultrasound even earlier. Electronically signed by Braulio Phipps 04-25-2025 03:[address] 04/26/25 08:03 CT SCAN OF THE RIGHT FOOT WITHOUT IV CONTRAST CLINICAL HISTORY: Left foot pain. Hardware infection. COMPARISON STUDY: Left foot x-rays dated 04/25/2025. MRI of the left foot dated 12/06/2021. TECHNIQUE: CT scan of the left foot was performed from the ankle to the base of the foot. Images are reviewed in the axial, sagittal, and coronal planes. IV contrast was not administered for this examination. 3-D reformats are created and assessed. A dose lowering technique was utilized adhering to the principles of ALARA. CT DOSE: 681.47 mGy.cm FINDINGS: The skeletal structures are osteopenic. No acute fracture is clearly seen. Advanced arthritic change with bony sclerosis and fragmentation is seen in the midfoot at the tarsometatarsal joints. There has been fusion at the first tarsometatarsal articulation with a buttress plate along the dorsal cortex. An additional oblique cortical screw transfixes the first metatarsophalangeal joint, extending through the cortex of the medial cuneiform and approximating the middle cuneiform and navicular. There is nonspecific lucency around the distal end of this screw. There are also fixation devices along the dorsal cortex of the second and third metatarsophalangeal joints. No erosive change is seen to suggest osteomyelitis. The ankle mortise is maintained. There is diffuse soft tissue edema throughout the foot, with subcutaneous fluid. This is greatest along the dorsal/lateral aspect of the forefoot. Question a 2.4 x 1.2 cm organized pocket of fluid along the dorsal aspect of the first metatarsal shaft seen on axial image #265. No soft tissue gas is seen throughout the foot. A plantar heel spur is observed. The Achilles tendon is intact as visualized. A small ulceration/wound is suggested along the dorsal aspect of the forefoot overlying the navicular. IMPRESSION: 1. No acute fracture is seen. 2. Postsurgical and severe degenerative change in the midfoot as above with bony fragmentation and sclerosis. This is likely on a postsurgical/degenerative basis. Superimposed infection would be impossible to exclude and clinical correlation will be essential. 3. There is lucency seen distally around a cortical screw which extends through the first metatarsophalangeal joint and approximating the medial cuneiform and anterior navicular. Hardware loosening is not excluded. 4. There is diffuse soft tissue edema and subcutaneous fluid throughout the foot, likely representing cellulitis. 5. Question a 2.4 x 1.2 cm organized pocket of fluid along the dorsal aspect of the foot overlying the first metatarsal shaft. An abscess at this site is not excluded. There is no soft tissue gas. 6. A small ulceration/wound is suggested along the dorsum of the foot. Correlate clinically. ACT 112: Negative or not required by law. Dictated: 04/26/2025 10:07 AM Transcribed: 04/26/2025 11:53 AM Hayley [id number] [email or web address] [id number] Electronically signed by: Hola Garner M.D. 04/26/2025 2:32 PM Pending Results Patient Have Any Pending Studies at Discharge: Yes (repeat blood cultures) Discharge Instructions Given to Patient (Per Discharging Provider) Michael, You were admitted to the hospital with osteomyelitis of your left foot and MSSA bacteremia. Osteomyelitis is an infection of the bone and bacteremia is an infection of the bloodstream. You were evaluated by Dr. Choi from podiatry and had surgery on 04/27 to remove the infected hardware. You were also evaluated by the infectious disease doctor who coordinated your antibiotic regimen. You had a PICC line placed for ongoing IV antibiotics. You are being discharged to [facility] for rehab. Upon discharge from the hospital: * Continue cefazolin 2 g IV every 8 hours through 06/07. This is to complete your antibiotic treatment for your left foot osteomyelitis and MSSA bacteremia. * You were started on ferrous sulfate 325 mg daily. This is an oral iron supplement as your iron panel showed iron deficiency anemia. Side effects of oral iron supplementation include constipation, so I recommend monitoring for constipation and using an [id number] bowel regimen as needed. * You can take Tylenol as needed for basic pain or fever. * You can take oxycodone 5 mg every 6 hours as needed for severe pain. Do not drive or operate heavy machinery while taking oxycodone as it is a narcotic pain medication. * Take aspirin 81 mg twice daily. This serves as DVT prophylaxis to prevent a blood clot from forming. * You will have labs (CBC with differential, CMP) checked weekly with your ongoing IV antibiotics. * Follow-up with Dr. Choi from podiatry as directed. * Follow-up with infectious disease outpatient as directed. * Follow-up with your PCP in 1-2 weeks. Please return to the hospital if you experience any of the following: worsening drainage from your incision site, fever of 100.5 F or higher, chest pain, difficulty breathing, inability to tolerate oral intake, new or worsening confusion, passing out, or any other symptoms concerning for you. It was a pleasure taking care of you while you were in the hospital! Supervising Physician Co-Signing Physician Notes Attending Attestation and Discharge Note: Chart reviewed, discharge care plan d/w PA Daphne Valentin. I agree w/ the zamarripa components of her discharge documentation. Of note - I did not perform a bedside visit or exam on day of discharge. 69yo male with OA (chart lists rheumatoid arthritis as diagnosis but he denies), MAXIMO, hypertension, anemia, asthma, B12 deficiency, GERD, hypertension, and anxiety/insomnia. Patient had left foot surgery at [facility] ~3 years ago (1st/2nd/3rd toe arthrodesis). Presented with <1 week of left foot pain, swelling, redness, and an open wound. Left foot wound cx from 04/25 grew proteus & MSSA. Blood cx's from 04/25 grew MSSA. Repeat blood cultures (multiple) remained negative. Echo did not show valvular vegetations. Seen in consult by Dr Saeed Choi, podiatry. Dr Choi felt that there was likely infection of the hardware and he advised surgery for the foot. Thus, on 04/27, Dr Choi performed the following: -left foot I & D -left foot removal of infected hardware -left foot removal of first metatarsal bone Path report from the first metatarsal bone showed acute osteomyelitis. He was seen in consult by infectious disease. A prolonged course of IV abx via PICC line recommended. PICC was placed, and he will complete a course of IV ancef with final dose on 06/07/25. He will need close f/u with Dr Choi in the clinic. He is transferring to [facility] for acute rehab & ongoing IV abx therapy. Kamlesh Xavier MD Total Time Total Time Spent Total Time Spent (In Minutes): Greater than 30 minutes spent completing this discharge process including direct patient care, medication reconciliation, documentation, review of labs and images, and coordination of care. Coding Level of Care Code 12379 INP/OBS DISCH >30 MIN Diagnoses Bacteremia R78.81 Foot osteomyelitis, left M86.9 Infected hardware in left lower extremity, initial encounter T84.7XXA Encounter type: initial encounter MAXIMO (obstructive sleep apnea) G47.33 Microcytic anemia D50.9
--- NOTE | 2025-05-12 16:53 | Operative Report ---
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 Anesthesia Type MAC Complications none Disposition Accompanied Patient To Recovery: Yes Disposition: Recovery Room Indications This patient is a recent hospital patient of ours who presented with acute onset of left foot cellulitis and infected hardware. He had a prior surgical intervention for a midfoot fusion and had done well for several years but now cruz s developed this acute increase in pain with a draining sinus. We discussed that the best temporary procedure for this is removal of the hardware and he may require a revision arthrodesis in the future depending on how well it is healed so far. Preoperative instructions, postop instructions, relative risks, and outcomes were all discussed at length. Further, we did discuss that IV antibiotics are likely required long-term given the infected nature of the hardware and surrounding bone. Patient understands and is amenable to this plan. All questions were answered. Consent was obtained for this procedure. Description of Procedure The patient was brought to the operating room and left on his preoperative litter bed for the duration of the procedure. No pneumatic tourniquet was utilized due to his acute hardware infection. After administration of IV sedation anesthesia, local analgesia was obtained utilizing 20 cc of 0.5% marcaine plain in an ankle and local block fashion. The left lower extremity was scrubbed, prepped, and draped in the usual aseptic manner. Attention was directed to the anterior aspect of the dorsal 1st TMTJ where a 6cm incision was performed with a 15 blade, just through the prior well healed cicatrix, excising the draining sinus at the same time. Attention was then directed to the dorsal midfoot, overlying the third metatarsal from the TMTJ distally. A 6 cm incision was made here and taken to the level of the intrinsic muscles of the foot with a 15 blade, taking care to cauterize and ligate any superificial bleeding vessels and retract any vital neurovascular structures. The affected hardware was immediately visualized deep to to this draining sinus and significant purulent drainage was expressed throughout the plate and screw construct. This was removed entirely and passed off to the back table. Further, the surrounding bone was noted to be consistent with osteomyelitis, with softening and evidence of necrosis clinically. Assistant Facility Manager samples were obtained and sent for culture and sensitivity as well as pathology testing. This was then flushed with copious amounts of sterile saline and closure was performed with 4-0 monocryl in the subcuticular skin and 4-0 nylon in the skin in a simple interrupted suture. All surgical sites were dressed with xeroform gauze, 4x4 gauze, kerlix, and an мария wrap. The patient tolerated the procedure well and was transferred to the recovery room with vital signs stable and vascular status intact to the feet. Following postoperative monitoring, the patient will be transported back to the floor for further monitoring and likely discharge to residential or acute rehab in the next couple of days for continued antibiotic therapy. I attest to the content of the Intraoperative Record and any orders documented therein. Any exceptions are noted below.
== END 2025-05-03 13:39 | DRG 495 ==
LOC: ED 23:53 → 4W 04-25 02:23 → SUATTDRO 04-25 02:23 → 4W 04-25 02:54 → 3W 04-26 17:48